=== PATIENT | male | born 1990 | race Caucasian/White ===

== ENCOUNTER 2017-03-11 21:31 | Inpatient (IN) | payer BC, OTHER ==
[~2017-03-11] VITALS: Ht 177.8 cm; Wt 87.5 kg
[2017-03-11 21:35] VITALS: Ht 177.8 cm; Wt 87.5 kg
[2017-03-11] MEDS ORDERED: SOD CHLORIDE 0.9% 1,000 ML IV STA (23:20)
[2017-03-11] MEDS ORDERED: ONDANSETRON 4 MG INJ IV STA (23:20)
[2017-03-11] MEDS ORDERED: morphine 4 MG/ML VIAL IV STA (23:20)
--- NOTE | 2017-03-11 23:35 | ERD ---
ER Documentation Chief Complaint Date/Time DATE: 03/11/17 TIME: 23:33 Chief Complaint RLQ abd pain x 1 day HPI 27-year-old male presents to emergency department for complaints of right groin , right scrotal pain and right lower quadrant pain that started tonight. Patient describes the pain as sharp pain, 9/10 scale, is worse upon moving and. Patient denies hematuria or dysuria. Patient denies any fever or chills. Patient denies any trauma and affected area. Patient denies any penile discharge. Patient denies taking any medications to help with symptoms. ROS All systems reviewed and are negative except as per history of present illness. Medications Home Meds Reported Medications [none] Unknown Strength No Conflict Check 03/11/17 Allergies Allergies: Coded Allergies: No Known Allergy (Unverified , 03/11/17) PMhx/Soc Medical and Surgical Hx: pt denies Medical Hx, pt denies Surgical Hx Hx Alcohol Use: No Hx Substance Use: No Hx Tobacco Use: No Smoking Status: Never smoker FmHx Family History: No coronary disease, No diabetes, No other Physical Exam Vitals Vital Signs Date Time Temp Pulse Resp B/P Pulse Ox O2 Delivery O2 Flow Rate FiO2 03/11/17 21:35 99.8 100 20 70/90 98 Physical Exam GENERAL: The patient is well developed and appropriate for usual state of health, in no apparent distress. CHEST: Clear to auscultation bilaterally. There are no rales, wheezes or rhonchi. HEART: Regular rate and rhythm. No murmurs, clicks, rubs or gallops. No S3 or S4. ABDOMEN: Soft, tenderness on palpation in the right lower quadrant. Good bowel sounds. No rebound or guarding. No gross peritonitis. No gross organomegaly or masses. No Weldon sign or McBurney point tenderness. BACK: No midline or flank tenderness. EXTREMITIES: Equal pulses bilaterally. There is no peripheral clubbing, cyanosis or edema. No focal swelling or erythema. Full range of motion. Grossly neurovascularly intact. NEURO: Alert and oriented. Cranial nerves 2-12 intact. Motor strength in all 4 extremities with 5/5 strength. Sensation grossly intact. Normal speech and gait. SKIN: There is no apparent rash or petechia. The skin is warm and dry. HEMATOLOGIC AND LYMPHATIC: There is no evidence of excessive bruising or lymphedema. No gross cervical, axillary, or inguinal lymphadenopathy. Result Diagram: 03/11/17234903/11/170 Results 24 hrs Laboratory Tests Test 03/11/17 23:50 03/12/17 02:12 White Blood Count 17.310^3/ul Red Blood Count 5.0410^6/ul Hemoglobin 14.7g/dl Hematocrit 42.0% Mean Corpuscular Volume 83.3fl Mean Corpuscular Hemoglobin 29.2pg Mean Corpuscular Hemoglobin Concent 35.0g/dl Red Cell Distribution Width 12.8% Platelet Count 35224^3/UL Mean Platelet Volume 9.8fl Neutrophils % 78.4% Lymphocytes % 9.7% Monocytes % 11.3% Eosinophils % 0.0% Basophils % 0.2% Nucleated Red Blood Cells % 0.0/100WBC Neutrophils # 13.610^3/ul Lymphocytes # 1.710^3/ul Monocytes # 2.010^3/ul Eosinophils # 0.010^3/ul Basophils # 0.010^3/ul Nucleated Red Blood Cells # 0.010^3/ul Sodium Level 137mmol/L Potassium Level 3.7mmol/L Chloride Level 105mmol/L Carbon Dioxide Level 20mmol/L Anion Gap 16 Blood Urea Nitrogen 16mg/dl Creatinine 0.78mg/dl Glucose Level 123mg/dl Calcium Level 9.6mg/dl Total Bilirubin 0.4mg/dl Direct Bilirubin 0.00mg/dl Indirect Bilirubin 0.4mg/dl Aspartate Amino Transf (AST/SGOT) 33IU/L Alanine Aminotransferase (ALT/SGPT) 55IU/L Alkaline Phosphatase 76IU/L Total Protein 8.3g/dl Albumin 4.5g/dl Globulin 3.80g/dl Albumin/Globulin Ratio 1.18 Lipase 69U/L Bedside Urine pH (LAB) 6.0 Bedside Urine Protein (LAB) 1+ Bedside Urine Glucose (UA) Negative Bedside Urine Ketones (LAB) Negative Bedside Urine Blood Trace-intact Bedside Urine Nitrite (LAB) Negative Bedside Urine Leukocyte Esterase (L Negative Current Medications Medications (Trade) Dose Ordered Sig/Kezia Route PRN Reason Start Time Stop Time Status Last Admin Dose Admin Sodium Chloride (NS) 1,000 ml @ 1,000 mls/hr Q1H STAT IV 03/11/17 23:20 03/12/17 00:19 DC 03/12/17 00:20 Morphine Sulfate (morphine) 4 mg ONCE STAT IV 03/11/17 23:20 03/11/17 23:21 DC 03/11/17 23:55 Ondansetron HCl (Zofran Inj) 4 mg ONCE STAT IV 03/11/17 23:20 03/11/17 23:21 DC 03/11/17 23:55 Morphine Sulfate (morphine) 6 mg ONCE ONCE IV 03/12/17 00:30 03/12/17 00:31 DC 03/12/17 00:14 Hydromorphone HCl (Dilaudid) 1 mg ONCE STAT IV 03/12/17 01:07 03/12/17 01:08 DC 03/12/17 01:12 Patient was given medication for pain here in emergency department, after treatment, patient verbalized feeling much better. Patient's pain is improved.Patient was given Zofran here in the emergency department. After treatment, patient was able to tolerate po fluids here in the emergency department without any vomiting. There is no signs and symptoms of dehydration. Normal saline IV bolus was given here in emergency department for rehydration, patient tolerated IV fluids.. PROCEDURE: CT Abdomen and pelvis without contrast. CLINICAL INDICATION: Abdominal pain. TECHNIQUE: CT scan of the abdomen and pelvis was performed on a multi- detector high-resolution CT scanner. Contiguous axial images were obtained from the lung bases to the ischial tuberosities without intravenous contrast. Coronal and sagittal reformatted images were also obtained. Images were reviewed on the PACS workstation. One or more of the following dose reduction techniques were used: - Automated exposure control. - Adjustment of the mA and/or kV according to patient size. - Use of iterative reconstruction technique. Exam CTD/vol = 12.51 mGy. Total exam DLP = 813.34 mGy-cm. COMPARISON: None. FINDINGS: Evaluation of the lung bases demonstrates no pleural or parenchymal disease. Abdomen: The liver is normal in size. There is no focal mass or dilatation of the biliary tree. The gallbladder is not distended. The spleen, pancreas and bilateral adrenal glands are within normal limits. Bilateral kidneys are normal in size with no contour deforming mass identified. There is no radiopaque renal or ureteral calculus identified. There is no hydronephrosis or hydroureter. There is no retroperitoneal adenopathy. The abdominal aorta is of normal caliber. There is no abnormal bowel wall thickening or distension. There is no bowel obstruction or free air. A normal appendix is identified. There is no diverticulosis or diverticulitis. There is no ascites. Pelvis: The bladder is unremarkable. There is trace pelvic free fluid. The prostate and seminal vesicles are within normal limits. There is no significant pelvic adenopathy. Evaluation of the osseous structures demonstrates no suspicious lytic or blastic lesion. IMPRESSION: Trace pelvic free fluid. Otherwise no acute abnormality identified within the abdomen and pelvis. .Maurilio Menard MD, Date Time Electronically viewed and signed by .Maurilio Menard MD, MD on 03/12/2017 01:55 .T/ PROCEDURE: Scrotal ultrasound CLINICAL INDICATION: Testicular pain. TECHNIQUE: A scrotal ultrasound was performed utilizing back scale and Doppler imaging. COMPARISON: None. FINDINGS: The right testicle measures 4.3 x 2.2 x 2.8 cm. There is normal size and echogenicity and morphology of the right testicle with normal blood flow. The right epididymis measures 1.2 x 1.1 cm. Normal vascular flow is seen within the right epididymis. The left testicle measures 4.1 x 1.9 x 2.9 cm. There is normal size and echogenicity and morphology of the left testicle with normal blood flow. The left epididymis measures 1.4 x 0.7 cm. Normal vascular flow is seen within the left epididymis. There is a trace left hydrocele. A left varicocele is also noted. IMPRESSION: 1. No evidence of testicular torsion or epididymo-orchitis. 2. Trace left hydrocele. 3. Left varicocele. RPTAT: HTAR .Abhinav Craft MD, Date Time Electronically viewed and signed by .Abhinav Craft MD, on 03/12/2017 01:04 .R/ CC: DOT DUNN NP Procedures/MDM Medical Decision Making: Patient has right lower quadrant abdominal pain with no specific source at this time, after multiple medications for pain, patient continues to have abdominal pain and/10 scale, is controlled, intractable pain. I spoke with my attending physician, Dr. Daniel, with further evaluate patient and possibly admit the patient for further management and treatment of pain. Departure Diagnosis: Primary Impression: Abdominal pain Abdominal location: right lower quadrant Qualified Code: R10.31 - Right lower quadrant abdominal pain Condition: Stable DOT DUNN NP March 11, 2017 23:35
[2017-03-11 23:56] LABS: ADD SCAN DIFF NO
[2017-03-11 23:57] LABS: ABNORMAL IP MESSAGE 1; BASOPHILS % 0.2 % (0.0-2.0); HEMOGLOBIN 14.7 g/dl (14.0-18.0); LYMPHOCYTES # 1.7 10^3/ul (0.8-2.9); LYMPHOCYTES % 9.7 % (15.0-51.0); MEAN CORPUSCULAR HEMOGLOBIN 29.2 pg (29.0-33.0); MEAN CORPUSCULAR VOLUME 83.3 fl (82.0-101.0); MEAN PLATELET VOLUME 9.8 fl (7.4-10.4); MONOCYTES % 11.3 % (0.0-11.0); NEUTROPHIL # 13.6 10^3/ul (1.6-7.5); NEUTROPHILS % 78.4 % (39.0-77.0); PLATELET COUNT 321 10^3/UL (140-415); RED BLOOD COUNT 5.04 10^6/ul (4.70-6.10); RED CELL DISTRIBUTION WIDTH 12.8 % (11.5-14.5); WHITE BLOOD COUNT 17.3 10^3/ul (4.8-10.8)
[2017-03-12] VITALS (9 sets, daily range): BP systolic 117–142; BP diastolic 64–84; PULSE 98–125; RESP 18–20; TEMP 98.1
[2017-03-12 00:16] LABS: ALBUMIN 4.5 g/dl (3.3-4.9); ALBUMIN/GLOBULIN RATIO 1.18; BILIRUBIN,INDIRECT 0.4 mg/dl (0-1.1); BILIRUBIN,TOTAL 0.4 mg/dl (0.2-1.3); CALCIUM 9.6 mg/dl (8.4-10.2); CREATININE 0.78 mg/dl (0.61-1.24); POTASSIUM 3.7 mmol/L (3.5-5.1); TOTAL PROTEIN 8.3 g/dl (6.1-8.1)
[2017-03-12] MEDS ORDERED: morphine 10 MG INJ IV ONE (00:30)
--- NOTE | 2017-03-12 01:04 | RADRPT ---
PROCEDURE: Scrotal ultrasound CLINICAL INDICATION: Testicular pain. TECHNIQUE: A scrotal ultrasound was performed utilizing back scale and Doppler imaging. COMPARISON: None. FINDINGS: The right testicle measures 4.3 x 2.2 x 2.8 cm. There is normal size and echogenicity and morphology of the right testicle with normal blood flow. The right epididymis measures 1.2 x 1.1 cm. Normal va scular flow is seen within the right epididymis. The left testicle measures 4.1 x 1.9 x 2.9 cm. There is normal size and echogenicity and morphology of the left testicle with normal blood flow. The left epididymis measures 1.4 x 0.7 cm. Normal vascu lar flow is seen within the left epididymis. There is a trace left hydrocele. A left varicocele is also noted. IMPRESSION: 1. No evidence of testicular torsion or epididymo-orchitis. 2. Trace left hydrocele. 3. Left varicocele. RPTAT: HTAR .Abhinav Craft MD, MD Date Time Electronically viewed and signed by .Abhinav Craft MD, on 03/12/2017 01:04 .R/
[2017-03-12] MEDS ORDERED: HYDROmorphONE 1 MG/ML SYG IV STA (01:07)
--- NOTE | 2017-03-12 01:55 | RADRPT ---
PROCEDURE: CT Abdomen and pelvis without contrast. CLINICAL INDICATION: Abdominal pain. TECHNIQUE: CT scan of the abdomen and pelvis was performed on a multi-detector high-resolution CT scanner. Contiguous axial images were obtained from the lung bases to the ischial tuberosities wit hout intravenous contrast. Coronal and sagittal reformatted images were also obtained. Images were reviewed on the PACS workstation. One or more of the following dose reduction techniques were used: - Automated exposure control. - Adjustment of the mA and/or kV according to patient size. - Use of iterative reconstruction technique. Exam CTD/vol = 12.51 mGy. Total exam DLP = 813.34 mGy-cm. COMPARISON: None. FINDINGS: Evaluation of the lung bases demonstrates no pleural or parenchymal disease. Abdomen: The liver is normal in size. There is no focal mass or dilatation of the biliary tree. T he gallbladder is not distended. The spleen, pancreas and bilateral adrenal glands are within jigar l limits. Bilateral kidneys are normal in size with no contour deforming mass identified. There is no radiopaque renal or ureteral calculus identified. There is no hydronephrosis or hydroureter. T here is no retroperitoneal adenopathy. The abdominal aorta is of normal caliber. There is no abnormal bowel wall thickening or distension. There is no bowel obstruction or free air . A normal appendix is identified. There is no diverticulosis or diverticulitis. There is no asci randy. Pelvis: The bladder is unremarkable. There is trace pelvic free fluid. The prostate and seminal v esicles are within normal limits. There is no significant pelvic adenopathy. Evaluation of the osseous structures demonstrates no suspicious lytic or blastic lesion. IMPRESSION: Trace pelvic free fluid. Otherwise no acute abnormality identified within the abdomen and pelvis. .Maurilio Meanrd MD, MD Date Time Electronically viewed and signed by .Maurilio Menard MD, MD on 03/12/2017 01:55 .T/
[2017-03-12 02:10] LABS: URINE BLOOD (Dip) POC Trace-intact (NEGATIVE)
[2017-03-12 03:05] LABS: ADD UMIC NO; URINE BILIRUBIN (Dip) NEGATIVE (NEGATIVE); URINE BLOOD (Dip) NEGATIVE (NEGATIVE); URINE COLOR LT. YELLOW (YELLOW); URINE GLUCOSE (Dip) NEGATIVE (NEGATIVE); URINE KETONES (Dip) NEGATIVE (NEGATIVE); URINE LEUKOCYTE ESTERASE (Dip) NEGATIVE (NEGATIVE); URINE NITRITE (Dip) NEGATIVE (NEGATIVE); URINE TOTAL PROTEIN (Dip) NEGATIVE (NEGATIVE); URINE UROBILINOGEN (Dip) 0.2 E.U./dL (0.1-1.0)
[2017-03-12] MEDS ORDERED: LORAZEPAM 2 MG INJ IV ONE (04:30)
[2017-03-12] MEDS ORDERED: SOD CHLORIDE 0.9% 1,000 ML IV SCH (05:00)
[2017-03-12] MEDS ORDERED: KETOROLAC 30 MG INJ IV ONE (05:04)
[2017-03-12] MEDS: SOD CHLORIDE 0.9% 1,000 ML IV SCH ×3 (05:26→21:36)
[2017-03-12] MEDS ORDERED: DOCUSATE SODIUM 100 MG CAP PO PRN (05:30)
[2017-03-12] MEDS ORDERED: BISACODYL (EC) 5 MG TAB PO PRN (05:30)
[2017-03-12] MEDS ORDERED: NACL 0.9% 3 ML SYG IV SCH (05:30)
[2017-03-12] MEDS ORDERED: ONDANSETRON 4 MG INJ IV PRN (05:30)
[2017-03-12 06:00] LABS: POTASSIUM 3.7 mmol/L (3.5-5.1)
[2017-03-12 06:03] LABS: CREATININE 0.81 mg/dl (0.61-1.24)
[2017-03-12 06:04] LABS: CALCIUM 8.9 mg/dl (8.4-10.2)
[2017-03-12 06:18] LABS: ADD SCAN DIFF NO
[2017-03-12 06:28] LABS: ABNORMAL IP MESSAGE 1; BASOPHILS % 0.1 % (0.0-2.0); HEMATOCRIT 42.2 % (42.0-52.0); HEMOGLOBIN 14.2 g/dl (14.0-18.0); LYMPHOCYTES % 5.9 % (15.0-51.0); MEAN CORPUSCULAR HEMOGLOBIN 29.1 pg (29.0-33.0); MEAN CORPUSCULAR HGB CONC 33.6 g/dl (32.0-37.0); MEAN CORPUSCULAR VOLUME 86.5 fl (82.0-101.0); MEAN PLATELET VOLUME 10.4 fl (7.4-10.4); MONOCYTE # 1.7 10^3/ul (0.3-0.9); MONOCYTES % 10.1 % (0.0-11.0); NEUTROPHIL # 14.1 10^3/ul (1.6-7.5); NEUTROPHILS % 83.4 % (39.0-77.0); PLATELET COUNT 288 10^3/UL (140-415); RED BLOOD COUNT 4.88 10^6/ul (4.70-6.10); WHITE BLOOD COUNT 16.9 10^3/ul (4.8-10.8)
[2017-03-12] MEDS: HYDROmorphONE 1 MG/ML SYG IV PRN ×2 (08:18→14:53)
[2017-03-12] MEDS: FAMOTIDINE 20 MG TAB PO SCH ×2 (08:27→21:33)
[2017-03-12] MEDS: ENOXAPARIN 40 MG/0.4 ML SYG SC SCH (08:27)
--- NOTE | 2017-03-12 09:44 | HP ---
Date/Time of Note Date/Time of Note DATE: 03/12/17 TIME: 09:32 Assessment/Plan VTE Prophylaxis VTE Prophylaxis Intervention: LMWH Lines/Catheters IV Catheter Type (from [facility]): Peripheral IV Assessment/Plan Chief Complaint/Hosp Course This is a 27-year-old male being admitted to the [facility] floor for: #1 intractable pain: Etiology of the pain is currently undetermined. CT of the abdomen pelvis was done that does not show any overt abnormality: Patient does have a varicocele on the testicular ultrasound however this does not explain his excruciating pain. He did he does specify that the pain is mainly at the right upper thigh area. I will order CK total as well as an MRI of the right lower extremity to rule out any possible underlying inflammation versus muscle tear versus other muscular skeletal issue. He denies any urinary symptoms and his UA was not positive for any signs of infection. And his prostate and bladder appear normal on the CAT scan which makes UTI versus prostatitis less likely. I will give him give him a Toradol for pain right now and if that does not help him we will add on some Dilaudid. #2 leukocytosis: Patient is afebrile he does have a white count of 17. This could be reactive versus infectious. We will continue to trend this. I will order a urine culture for completeness sake. We will continue to follow this and look for any new signs of any possible sources of infection. At this time I will not give him any antibiotics. #3 DVT GI prophylaxis: Lovenox, famotidine Problems: HPI/ROS Admit Date/Time Admit Date/Time March 12, 2017 at 03:43 Hx of Present Illness Chief complaint: Right thigh pain right lower abdominal quadrant pain This is a 27-year-old male who presents to the ED with pain at the right upper thigh and right abdominal quadrant. Patient states that 2 days ago he was playing soccer and at that time. That he may have pulled a muscle. Then yesterday at work patient states that he was in a seated position and when he stood up he started experiencing pain going from his right upper thigh up to his right upper abdomen. He denies any nausea vomiting or diarrhea. Denies any dysuria or burning when he urinates. He denies experiencing this pain before. Allergies: NKDA Medications: None ROS As per HPI Eyes : No pain discharge or redness or change in visual acuity ENT: No pain, sore throat, congestion, congestion, dysphagia or discharge Respiratory: No shortness of breath, cough, sputum, wheezing, or pleuritic pain Cardiovascular: No chest pain, palpitation, PND, or edema GI : as per HPI Genitourinary: As per HPI Musculoskeletal: No joint pain, back pain, neck pain, restricted range of motion in neck or joints Skin: No rash, bruising or hives Neuro: No headache, dizziness, syncope, seizure, focal weakness Endocrine: No polyuria, polydipsia, temperature intolerance Psych: No hallucination, depression, anxiety or suicidal ideation PMH/Family/Social Social History Smoking Status: Never smoker Exam/Review of Systems Vital Signs Vitals Vital Signs Date Time Temp Pulse Resp B/P Pulse Ox O2 Delivery O2 Flow Rate FiO2 03/12/17 07:00 98.7 113 18 142/73 97 03/12/17 04:14 Room Air Intake and Output 03/11/17 03/11/17 03/12/17 15:00 23:00 07:00 Intake Total 240 ml Output Total 600 ml Balance -360 ml Exam Exam General: Patient is lying in bed slightly somnolent from medications, and moderate distress from pain. HEENT: Atraumatic, normocephalic. The pupils are equal, round and reactive. Extraocular motor are intact Neck: Supple with full range of motion. No rigidity or meningismus Chest: Nontender Lungs: Clear to auscultation bilaterally no crackles rales or wheezing Heart: Normal S1-S2, Regular rhythm and rate. No murmur, S3, or S4 Abdomen: Soft , tenderness to palpation of the right lower abdominal quadrant. Normal bowel sounds. Extremities: Tenderness to palpation of the right upper thigh, no erythema or redness noted area of tenderness. Neurologic: Normal mental status, speech normal, cranial nerves II through XII are intact, motor and sensory are intact, no focal weakness Genitourinary: Patient deferred exam. Additional Comments ROCEDURE: CT Abdomen and pelvis without contrast. CLINICAL INDICATION: Abdominal pain. TECHNIQUE: CT scan of the abdomen and pelvis was performed on a multi- detector high-resolution CT scanner. Contiguous axial images were obtained from the lung bases to the ischial tuberosities without intravenous contrast. Coronal and sagittal reformatted images were also obtained. Images were reviewed on the PACS workstation. One or more of the following dose reduction techniques were used: - Automated exposure control. - Adjustment of the mA and/or kV according to patient size. - Use of iterative reconstruction technique. Exam CTD/vol = 12.51 mGy. Total exam DLP = 813.34 mGy-cm. COMPARISON: None. FINDINGS: Evaluation of the lung bases demonstrates no pleural or parenchymal disease. Abdomen: The liver is normal in size. There is no focal mass or dilatation of the biliary tree. The gallbladder is not distended. The spleen, pancreas and bilateral adrenal glands are within normal limits. Bilateral kidneys are normal in size with no contour deforming mass identified. There is no radiopaque renal or ureteral calculus identified. There is no hydronephrosis or hydroureter. There is no retroperitoneal adenopathy. The abdominal aorta is of normal caliber. There is no abnormal bowel wall thickening or distension. There is no bowel obstruction or free air. A normal appendix is identified. There is no diverticulosis or diverticulitis. There is no ascites. Pelvis: The bladder is unremarkable. There is trace pelvic free fluid. The prostate and seminal vesicles are within normal limits. There is no significant pelvic adenopathy. Evaluation of the osseous structures demonstrates no suspicious lytic or blastic lesion. IMPRESSION: Trace pelvic free fluid. Otherwise no acute abnormality identified within the abdomen and pelvis. PROCEDURE: Scrotal ultrasound CLINICAL INDICATION: Testicular pain. TECHNIQUE: A scrotal ultrasound was performed utilizing back scale and Doppler imaging. COMPARISON: None. FINDINGS: The right testicle measures 4.3 x 2.2 x 2.8 cm. There is normal size and echogenicity and morphology of the right testicle with normal blood flow. The right epididymis measures 1.2 x 1.1 cm. Normal vascular flow is seen within the right epididymis. The left testicle measures 4.1 x 1.9 x 2.9 cm. There is normal size and echogenicity and morphology of the left testicle with normal blood flow. The left epididymis measures 1.4 x 0.7 cm. Normal vascular flow is seen within the left epididymis. There is a trace left hydrocele. A left varicocele is also noted. IMPRESSION: 1. No evidence of testicular torsion or epididymo-orchitis. 2. Trace left hydrocele. 3. Left varicocele. Labs Result Diagram: 03/12/1752403/12/17524 Medications Medications Current Medications Hydromorphone HCl 0.5 mg 0.5 mg Q4H PRN IV PAIN Last administered on 03/12/17 08:18; Admin Dose 0.5 MG; Start 03/12/17 at 05:00 Sodium Chloride (NS) 1,000 ml @ 80 mls/hr [id number] IV Last administered on 03/12 05:26; Admin Dose 80 MLS/HR; Start 03/12/17 at 05:08 Ondansetron HCl (Zofran Inj) 4 mg Q6H PRN IV NAUSEA AND/OR VOMITING; Start at 05:30 Acetaminophen (Tylenol Tab) 650 mg Q6H PRN PO PAIN LEVEL 1-3 OR FEVER; Start at 05:30 Docusate Sodium (Colace) 100 mg Q12H PRN PO CONSTIPATION; Start 03/12/17 at 05: 30 Bisacodyl (Dulcolax) 5 mg DAILY PRN PO CONSTIPATION; Start 03/12/17 at 05:30 Famotidine (Pepcid) 20 mg Q12 PO Last administered on 03/12/17 08:27; Admin Dose 20 MG; Start 03/12/17 at 09:00 Enoxaparin Sodium (Lovenox) 40 mg DAILY SC Last administered on 03/12/17 08:27 ; Admin Dose 40 MG; Start 03/12/17 at 09:00 Ketorolac Tromethamine (Toradol) 30 mg Q6H PRN IV PAIN; Start 03/12/17 at 08:30 ; Stop 03/15/17 at 08:29 ELIZABETH KEARNEY March 12, 2017 09:44
[2017-03-12] MEDS: KETOROLAC 30 MG INJ IV PRN ×3 (11:49→23:47)
--- NOTE | 2017-03-12 12:18 | RADRPT ---
PROCEDURE: MRI OF THE RIGHT THIGH CLINICAL INDICATION: Muscle injury while playing soccer 2 days ago. TECHNIQUE: Multiple MR pulse sequences in multiple planes were obtained. Images were interpreted o n a high-resolution PACS system. COMPARISON: Correlation with CT from the same day FINDINGS: There is no acute fracture, osteonecrosis or stress response. Signal within the anterior and posterior muscles of the thigh is normal without evidence of strain, myositis or denervation effect. No abnormal intramuscular or subcutaneous fluid collections are charlene ntified. The neurovascular bundles are preserved. IMPRESSION: 1. No acute fracture, osteonecrosis or stress response. 2. No acute muscle or tendon abnormality. RPTAT: VV .Pankaj Fisher MD, Date Time Electronically viewed and signed by .Pankaj Fisher MD, MD on 03/12/2017 12:17 .d/
[2017-03-12] MEDS: ACETAMINOPHEN 325 MG TAB PO PRN ×2 (15:13→21:33)
[2017-03-13] MEDS: HYDROmorphONE 1 MG/ML SYG IV PRN ×2 (01:28→15:55)
[2017-03-13 05:37] LABS: ADD SCAN DIFF NO
[2017-03-13 05:45] LABS: ABNORMAL IP MESSAGE 1; BASOPHILS % 0.2 % (0.0-2.0); HEMATOCRIT 43.6 % (42.0-52.0); HEMOGLOBIN 14.1 g/dl (14.0-18.0); LYMPHOCYTES # 0.5 10^3/ul (0.8-2.9); LYMPHOCYTES % 2.2 % (15.0-51.0); MEAN CORPUSCULAR HEMOGLOBIN 28.7 pg (29.0-33.0); MEAN CORPUSCULAR HGB CONC 32.3 g/dl (32.0-37.0); MEAN CORPUSCULAR VOLUME 88.6 fl (82.0-101.0); MEAN PLATELET VOLUME 10.4 fl (7.4-10.4); MONOCYTE # 1.6 10^3/ul (0.3-0.9); MONOCYTES % 7.6 % (0.0-11.0); NEUTROPHIL # 18.5 10^3/ul (1.6-7.5); NEUTROPHILS % 89.3 % (39.0-77.0); PLATELET COUNT 189 10^3/UL (140-415); RED BLOOD COUNT 4.92 10^6/ul (4.70-6.10); RED CELL DISTRIBUTION WIDTH 13.2 % (11.5-14.5); WHITE BLOOD COUNT 20.8 10^3/ul (4.8-10.8)
[2017-03-13 05:53] LABS: ALBUMIN 3.2 g/dl (3.3-4.9); ALBUMIN/GLOBULIN RATIO 1.06; BILIRUBIN,INDIRECT 1.2 mg/dl (0-1.1); BILIRUBIN,TOTAL 1.2 mg/dl (0.2-1.3); CALCIUM 8.5 mg/dl (8.4-10.2); POTASSIUM 4.1 mmol/L (3.5-5.1); TOTAL PROTEIN 6.2 g/dl (6.1-8.1)
[2017-03-13] MEDS: ACETAMINOPHEN 325 MG TAB PO PRN ×2 (06:39→14:40)
[2017-03-13 08:25] VITALS: BP 123/66; RESP 18
[2017-03-13 10:15] VITALS: PULSE 118
[2017-03-13] MEDS: SOD CHLORIDE 0.9% 1,000 ML IV SCH (10:31)
[2017-03-13] MEDS: ENOXAPARIN 40 MG/0.4 ML SYG SC SCH (10:33)
[2017-03-13] MEDS: KETOROLAC 30 MG INJ IV PRN ×2 (10:34→19:31)
[2017-03-13] MEDS: FAMOTIDINE 20 MG TAB PO SCH ×2 (10:34→21:00)
--- NOTE | 2017-03-13 14:09 | PN ---
Date/Time of Note Date/Time of Note DATE: 03/13/17 TIME: 14:06 Assessment/Plan VTE Prophylaxis VTE Prophylaxis Intervention: LMWH Lines/Catheters IV Catheter Type (from [facility]): Peripheral IV Assessment/Plan Chief Complaint/Hosp Course Assessment and plan 1. Right lower quadrant abdominal pain, no evidence of appendicitis on CT of the abdomen and pelvis Continue pain medication, general surgery has been consulted, No evidence of testicular torsion on ultrasound Continue to monitor, started patient on Levaquin 2. Leukocytosis, Start Levaquin CBC in a.m. ` DVT GI prophylaxis: Lovenox, famotidine Problems: Subjective 24 Hr Interval Summary Free Text/Dictation Patient continues to complain of having right lower quadrant and inguinal pain Denies of any chest pain or shortness of breath Denies of any fever Exam/Review of Systems Vital Signs Vitals Vital Signs Date Time Temp Pulse Resp B/P Pulse Ox O2 Delivery O2 Flow Rate FiO2 03/13/17 10:15 98.9 118 03/13/17 08:25 18 123/66 95 03/12/17 18:11 Room Air Intake and Output 03/12/17 03/12/17 03/13/17 14:59 22:59 06:59 Intake Total 1700 ml 1280 ml Output Total 1500 ml Balance 1700 ml -220 ml Exam General: The patient is well-developed, Not in acute distress. HEENT: Atraumatic, normocephalic. The pupils are equal and round . Neck: Supple with full range of motion. Chest: Normal expansion of the thorax during inspiration Lungs: Clear to auscultation bilaterally Heart: Normal S1-S2, Regular rhythm and rate. Abdomen: Soft , right lower quadrant and inguinal tenderness, nondistended , bowel sounds are present. Extremities: Normal to inspection, no edema no cyanosis Neurologic: Normal mental status,The patient is awake, alert and oriented . Results Result Diagram: 03/13/17 0430 03/13/17 0430 Results 24 hrs Laboratory Tests Test 03/13/17 04:30 White Blood Count 20.8 #H Red Blood Count 4.92 Hemoglobin 14.1 Hematocrit 43.6 Mean Corpuscular Volume 88.6 Mean Corpuscular Hemoglobin 28.7 L Mean Corpuscular Hemoglobin Concent 32.3 Red Cell Distribution Width 13.2 Platelet Count 189 # Mean Platelet Volume 10.4 Neutrophils % 89.3 H Lymphocytes % 2.2 L Monocytes % 7.6 Eosinophils % 0.0 Basophils % 0.2 Nucleated Red Blood Cells % 0.0 Neutrophils # 18.5 H Lymphocytes # 0.5 L Monocytes # 1.6 H Eosinophils # 0.0 Basophils # 0.0 Nucleated Red Blood Cells # 0.0 Sodium Level 134 L Potassium Level 4.1 Chloride Level 104 Carbon Dioxide Level 24 Anion Gap 10 Blood Urea Nitrogen 15 Creatinine 1.00 Glucose Level 84 Calcium Level 8.5 Total Bilirubin 1.2 Direct Bilirubin 0.00 Indirect Bilirubin 1.2 H Aspartate Amino Transf (AST/SGOT) 30 Alanine Aminotransferase (ALT/SGPT) 50 Alkaline Phosphatase 63 Total Protein 6.2 # Albumin 3.2 #L Globulin 3.00 Albumin/Globulin Ratio 1.06 Medications Medications Current Medications Hydromorphone HCl 0.5 mg 0.5 mg Q4H PRN IV PAIN Last administered on 03/13/17 01:28; Admin Dose 0.5 MG; Start 03/12/17 at 05:00 Sodium Chloride (NS) 1,000 ml @ 80 mls/hr [id number] IV Last administered on 03/13 10:31; Admin Dose 80 MLS/HR; Start 03/12/17 at 05:08 Ondansetron HCl (Zofran Inj) 4 mg Q6H PRN IV NAUSEA AND/OR VOMITING; Start at 05:30 Acetaminophen (Tylenol Tab) 650 mg Q6H PRN PO PAIN LEVEL 1-3 OR FEVER Last administered on 03/13/17 06:39; Admin Dose 650 MG; Start 03/12/17 at 05:30 Docusate Sodium (Colace) 100 mg Q12H PRN PO CONSTIPATION; Start 03/12/17 at 05: 30 Bisacodyl (Dulcolax) 5 mg DAILY PRN PO CONSTIPATION; Start 03/12/17 at 05:30 Famotidine (Pepcid) 20 mg Q12 PO Last administered on 03/13/17 10:34; Admin Dose 20 MG; Start 03/12/17 at 09:00 Enoxaparin Sodium (Lovenox) 40 mg DAILY SC Last administered on 03/13/17 10:33 ; Admin Dose 40 MG; Start 03/12/17 at 09:00 Ketorolac Tromethamine (Toradol) 30 mg Q6H PRN IV PAIN Last administered on t 10:34; Admin Dose 30 MG; Start 03/12/17 at 08:30; Stop 03/15/17 at 08:29 KENY WITT MD March 13, 2017 14:09
[2017-03-13] MEDS ORDERED: LEVOFLOXACIN 500MG/D5W (PMX) 100 ML IVPB SCH (14:30)
[2017-03-13] MEDS: PIPER-TAZO 3.375 GM IV (PMX) 100 ML IVPB SCH ×2 (16:31→23:10)
[2017-03-13 19:00] VITALS: BP 130/70; RESP 18
[2017-03-13] MEDS ORDERED: VANCOMYCIN IV PER PHARMACY XX SCH (23:00)
[2017-03-13] MEDS ORDERED: VANCOMYCIN 1.5 GM in SOD CHLORIDE 0.9% 250 ML IVPB SCH (23:30)
--- NOTE | 2017-03-13 23:55 | HP ---
DATE OF ADMISSION: 03/12/2017 REASON FOR CONSULTATION: Right lower quadrant abdominal pain. HISTORY OF PRESENT ILLNESS: The patient is a healthy and fit 27-year-old gentleman who presented to the emergency room 2 days ago with a history that he was at work and after standing up, he felt a s evere pain in the right upper inner thigh and groin, which was practically incapacitating. He was s een in the emergency room where he was treated and released. At that time, he had an elevated white count. The patient's symptoms continued, and the patient was readmitted yesterday. His white bloo d cell count on admission yesterday was 16,900; today it is 20,800 with a left shift. Furthermore, the patient has gram-positive cocci in his blood. His imaging is as follows: He has had abdominope lvic CT which is unremarkable. Lower extremity MRI also unremarkable, and a testicular ultrasound w [facility] [place] shows no evidence of testicular torsion or epididymitis. The patient states that since his arr ival, he feels better. His main problem is when he moves, he needs to stand up and standing up from a sitting position is what causes him the greatest amount of pain. He has full p.o. tolerance and normal bowel function. He has had no fevers or chills or really abdominal pain. Most of his pain i s upper inner thigh and groin. PAST MEDICAL HISTORY: No previous hospitalizations or illnesses. REVIEW OF SYSTEMS: HEAD, EARS, EYES, NOSE AND THROAT: Unremarkable. PULMONARY: No history of pneumonia, asthma or shortness of breath. CARDIAC: No history of chest pain or arrhythmia. ABDOMEN: No history. GENITOURINARY: Asymptomatic. OUTPATIENT MEDICATIONS: None. ALLERGIES: NONE. PHYSICAL EXAMINATION: GENERAL: The patient is an alert, oriented, 27-year-old male in no acute distress. HEAD, EARS, EYES, NOSE, THROAT: Within normal limits. LUNGS: Clear. HEART: Regular rhythm. ABDOMEN: Soft and nontender. GENITALIA: Normal male. No evidence of inguinal hernia. EXTREMITIES: Unremarkable. No evidence of bruising or ecchymosis. LABORATORY DATA: The patient's hematocrit is 43.6 with a white count of 20,800 and a left shift wit h 89 polys. There is no bandemia. BUN, glucose, electrolytes are unremarkable. IMPRESSION: The patient has no abdominal symptomatology. His abdominal imaging is unremarkable. T he finding of gram-positive cocci in his blood cultures is unexplained. It perhaps can be a contami nant. PLAN: Infectious Diseases consultation has been sought. My impression is that the patient has no i ntraabdominal source of his leukocytosis or thigh pain. I will follow with you. Further recommenda tions will be forthcoming based on the patient's further workup and clinical course. Dictated By: DARREN BANDA/VARGAS Conf#: [id number] DID#: [id number]
[2017-03-14 00:30] VITALS: BP 133/62; RESP 18
--- NOTE | 2017-03-14 02:13 | CONS ---
DATE OF ADMISSION: 03/12/2017 DATE OF CONSULTATION: REQUESTING PHYSICIAN: Dr. Esau Colunga. HISTORY OF PRESENT ILLNESS: The patient is a 27-year-old male who was admitted with acute onset of right groin and scrotal pain described as being sharp, 9/10 in intensity, and also right lo wer quadrant abdominal pain. No nausea, vomiting, diarrhea, chills. The patient's father states hi s temperature was 102. On arrival, it was 100.5. The abdominal exam revealed that it was basically negative except for mild right lower quadrant tenderness. White count was 17,300; hemoglobin 14.7, sodium 137, chloride 105, potassium 3.7, CO2 of 22. Urinalysis was essentially negative. The izabel ent had a CT scan of the abdomen and pelvis. There was trace pelvic free fluid. Everything else wa s normal or negative. Scrotal ultrasound revealed a left hydrocele and a left varicocele. The izabel ent had 2 blood cultures returned today with gram-positive cocci in 2 blood cultures. PHYSICAL EXAMINATION: GENERAL: Reveals a well-developed, well-nourished male lying in bed. He does not appear t o be in acute distress. He was awakened by the discussion I was having with his family in the room. He apparently had been peaceful for some hours, considering how much pain he had previously been h aving. Prior to my coming in to the room and prior to IV Zosyn, the patient was given a dose of Tor adol, which caused him to feel tight in his chest and have trouble breathing. This, of course, was discontinued right afterwards. HEENT: The pupils are equal, round, and reactive to light. Extraocular movements are full. The pa tient has no acute distress. NECK: Supple. No jugular venous distention. CHEST: Clear to auscultation. ABDOMEN: Soft. There is questionable some right lower abdominal tenderness. NEUROLOGIC: Grossly within normal limits. GENITOURINARY: There is no swelling, redness, or distortion of the scrotum. INITIAL IMPRESSION: 1. Septic syndrome. 2. Gram-positive bacteremia in 2 blood cultures. 3. Acute right lower quadrant and scrotal pain. 4. Adverse drug reaction. RECOMMENDATIONS: Continue vancomycin and Zosyn pending identification of the causative organisms. Discontinue Toradol. Obtain an MRSA screen from the nares. Obtain CBC and erythrocyte sedimentatio n rate in the morning. Dictated By: Clara ORTIZ MD for MENDY ARNDT MD EC/NTS Conf#: [id number] DID#: [id number] CC: ESAU KEARNEY MD;*EndCC*
[2017-03-14] MEDS: HYDROmorphONE 1 MG/ML SYG IV PRN ×2 (02:20→10:01)
[2017-03-14] MEDS: SOD CHLORIDE 0.9% 1,000 ML IV SCH (02:23)
[2017-03-14] MEDS: ACETAMINOPHEN 325 MG TAB PO PRN ×3 (02:29→15:58)
[2017-03-14 05:16] LABS: ADD SCAN DIFF NO
[2017-03-14 05:22] LABS: ABNORMAL IP MESSAGE 1; HEMATOCRIT 38.6 % (42.0-52.0); HEMOGLOBIN 13.2 g/dl (14.0-18.0); MEAN CORPUSCULAR HEMOGLOBIN 28.8 pg (29.0-33.0); MEAN CORPUSCULAR HGB CONC 34.2 g/dl (32.0-37.0); MEAN CORPUSCULAR VOLUME 84.3 fl (82.0-101.0); MEAN PLATELET VOLUME 10.6 fl (7.4-10.4); PLATELET COUNT 179 10^3/UL (140-415); RED BLOOD COUNT 4.58 10^6/ul (4.70-6.10); WHITE BLOOD COUNT 12.1 10^3/ul (4.8-10.8)
[2017-03-14 05:53] LABS: POTASSIUM 3.2 mmol/L (3.5-5.1)
[2017-03-14] MEDS: PIPER-TAZO 3.375 GM IV (PMX) 100 ML IVPB SCH ×2 (05:53→15:04)
[2017-03-14 05:55] LABS: ALBUMIN/GLOBULIN RATIO 0.85; BILIRUBIN,DIRECT 0.5 mg/dl (0.00-0.20); BILIRUBIN,INDIRECT 0.8 mg/dl (0-1.1); BILIRUBIN,TOTAL 1.3 mg/dl (0.2-1.3); CREATININE 0.97 mg/dl (0.61-1.24); TOTAL PROTEIN 6.5 g/dl (6.1-8.1)
[2017-03-14 05:56] LABS: CALCIUM 8.1 mg/dl (8.4-10.2); MAGNESIUM 1.9 mg/dl (1.7-2.5)
[2017-03-14 08:17] VITALS: BP 129/66; RESP 18
[2017-03-14 08:49] LABS: ADD SCAN DIFF NO
[2017-03-14 08:57] LABS: BASOPHILS % 0.3 % (0.0-2.0); HEMATOCRIT 38.8 % (42.0-52.0); HEMOGLOBIN 13.3 g/dl (14.0-18.0); LYMPHOCYTES # 0.6 10^3/ul (0.8-2.9); LYMPHOCYTES % 5.2 % (15.0-51.0); MEAN CORPUSCULAR HEMOGLOBIN 29.1 pg (29.0-33.0); MEAN CORPUSCULAR HGB CONC 34.3 g/dl (32.0-37.0); MEAN CORPUSCULAR VOLUME 84.9 fl (82.0-101.0); MONOCYTE # 0.3 10^3/ul (0.3-0.9); MONOCYTES % 2.8 % (0.0-11.0); NEUTROPHIL # 10.7 10^3/ul (1.6-7.5); PLATELET COUNT 195 10^3/UL (140-415); RED BLOOD COUNT 4.57 10^6/ul (4.70-6.10); WHITE BLOOD COUNT 11.8 10^3/ul (4.8-10.8)
[2017-03-14 09:01] LABS: NEUTROPHILS % 90.6 % (39.0-77.0)
--- NOTE | 2017-03-14 09:06 | PN ---
DATE: 03/14/2017 SURGERY PROGRESS NOTE SUBJECTIVE: The patient states that he is symptomatically improved, although now he states that his pain has crossed the midline and extending to the other groin. He is afebrile this morning; howeve r, his T-max yesterday was 102.8. A repeat CBC from today is pending. PHYSICAL EXAMINATION: GENITOURINARY: Both groins, scrotum, and penis are normal. The perineum is normal and rectal exami nation is normal. IMPRESSION: Unexplained fever and leukocytosis and gram-positive cocci. Infectious disease consult ation has been sought, and recommendations consist of continuing vancomycin and Zosyn, pending ident ification of the causative organism. At the present time, there are no surgical recommendations, an d I do not see any evidence of cellulitis, erythema, induration. His abdominal examination is entir rica benign. PLAN: Further recommendations will be based on the patient's further workup and clinical course. Dictated By: DARREN BANDA/VARGAS Conf#: [id number] DID#: [id number]
[2017-03-14] MEDS: FAMOTIDINE 20 MG TAB PO SCH ×3 (09:07→23:20)
[2017-03-14 09:40] LABS: LYMPHOCYTES # 0.6 10^3/ul (0.8-2.9); MONOCYTE # 0.2 10^3/ul (0.3-0.9); NEUTROPHIL # 6.8 10^3/ul (1.6-7.5)
[2017-03-14] MEDS: ENOXAPARIN 40 MG/0.4 ML SYG SC SCH (10:11)
[2017-03-14] MEDS: VANCOMYCIN 1.25 GM in SOD CHLORIDE 0.9% 250 ML IVPB SCH ×2 (10:17→17:41)
--- NOTE | 2017-03-14 11:01 | PN ---
Date/Time of Note Date/Time of Note DATE: 03/14/17 TIME: 10:55 Assessment/Plan VTE Prophylaxis VTE Prophylaxis Intervention: SCD's Lines/Catheters IV Catheter Type (from Nrs): Peripheral IV Assessment/Plan Chief Complaint/Hosp Course Assessment and plan 1. Right lower quadrant abdominal pain, no evidence of appendicitis on CT of the abdomen and pelvis Continue pain medication, general surgery has been consulted, No surgical intervention indicated at this time No evidence of testicular torsion on ultrasound continue Zosyn and vancomycin 2. Leukocytosis, Secondary to septic bacteremia with positive blood culture of gram-positive cocci in cluster 2 Follow up sensitivity Continue Zosyn and vancomycin Infectious disease doctor has been consulted CBC in a.m. ` 3. Transaminitis, CT of the abdomen and pelvis demonstrated "The liver is normal in size. There is no focal mass or dilatation of the biliary tree. The gallbladder is not distended." Place the patient on full liquid diet Follow-up liver function tests in a.m. Follow-up abdominal ultrasound DVT GI prophylaxis: Lovenox, famotidine Problems: Subjective 24 Hr Interval Summary Free Text/Dictation Patient continues to complain of having right lower quadrant abdominal discomfort although he has been improving since yesterday No nausea vomiting diarrhea Positive bowel movement T-max of 101.1 Exam/Review of Systems Vital Signs Vitals Vital Signs Date Time Temp Pulse Resp B/P Pulse Ox O2 Delivery O2 Flow Rate FiO2 03/14/17 08:17 99.5 95 18 129/66 99 03/14/17 00:30 Room Air Intake and Output 03/13/17 03/13/17 03/14/17 15:00 23:00 07:00 Intake Total 600 ml 1220 ml Output Total 1200 ml Balance 600 ml 20 ml Exam General: The patient is well-developed, Not in acute distress. HEENT: Atraumatic, normocephalic. The pupils are equal and round . Neck: Supple with full range of motion. Chest: Normal expansion of the thorax during inspiration Lungs: Clear to auscultation bilaterally Heart: Normal S1-S2, Regular rhythm and rate. Abdomen: Soft , right lower abdomen/groin tenderness , nondistended , bowel sounds are present. Extremities: Normal to inspection, no edema no cyanosis Neurologic: Normal mental status,The patient is awake, alert and oriented . Results Result Diagram: 03/14/17 0430 03/14/17 0450 Results 24 hrs Laboratory Tests Test 03/13/17 18:52 03/14/17 04:30 03/14/17 04:50 Lactic Acid Level 1.0 White Blood Count 11.8 H Red Blood Count 4.57 L Hemoglobin 13.3 L Hematocrit 38.8 L Mean Corpuscular Volume 84.9 Mean Corpuscular Hemoglobin 29.1 Mean Corpuscular Hemoglobin Concent 34.3 Red Cell Distribution Width 13.0 Platelet Count 195 Mean Platelet Volume 11.0 H Neutrophils % 90.6 H Band Neutrophils % 37.0 H Lymphocytes % 5.2 L Monocytes % 2.8 Eosinophils % 0.0 Basophils % 0.3 Nucleated Red Blood Cells % 0.0 Neutrophils # 10.7 H Lymphocytes # 0.6 L Monocytes # 0.3 Eosinophils # 0.0 Basophils # 0.0 Nucleated Red Blood Cells # 0.0 Erythrocyte Sedimentation Rate 23.0 H Sodium Level 134 L Potassium Level 3.2 L Chloride Level 102 Carbon Dioxide Level 22 Anion Gap 13 Blood Urea Nitrogen 14 Creatinine 0.97 Glucose Level 111 Calcium Level 8.1 L Magnesium Level 1.9 Total Bilirubin 1.3 Direct Bilirubin 0.50 #H Indirect Bilirubin 0.8 Aspartate Amino Transf (AST/SGOT) 88 #H Alanine Aminotransferase (ALT/SGPT) 92 H Alkaline Phosphatase 94 Total Protein 6.5 Albumin 3.0 L Globulin 3.50 H Albumin/Globulin Ratio 0.85 Medications Medications Current Medications Hydromorphone HCl (Dilaudid) 0.5 mg Q4H PRN IV PAIN Last administered on 10:01; Admin Dose 0.5 MG; Start 03/12/17 at 05:00 Ondansetron HCl (Zofran Inj) 4 mg Q6H PRN IV NAUSEA AND/OR VOMITING; Start at 05:30 Acetaminophen (Tylenol Tab) 650 mg Q6H PRN PO PAIN LEVEL 1-3 OR FEVER Last administered on 03/14/17 10:01; Admin Dose 650 MG; Start 03/12/17 at 05:30 Docusate Sodium (Colace) 100 mg Q12H PRN PO CONSTIPATION; Start 03/12/17 at 05: 30 Bisacodyl (Dulcolax) 5 mg DAILY PRN PO CONSTIPATION; Start 03/12/17 at 05:30 Famotidine (Pepcid) 20 mg Q12 PO Last administered on 03/14/17 09:07; Admin Dose 20 MG; Start 03/12/17 at 09:00 Enoxaparin Sodium 40 mg 40 mg DAILY SC Last administered on 03/14/17 10:11; Admin Dose 40 MG; Start 03/12/17 at 09:00 Piperacillin Sod/ Tazobactam Sod 100 ml @ 200 mls/hr Q8 IVPB Last administered on 03/14/17 05:53; Admin Dose 200 MLS/HR; Start 03/13/17 at 16:30 Vancomycin HCl/ Sodium Chloride (Vancocin/NS) 250 ml @ 83.333 mls/ hr Q8H IVPB Last administered on 03/14/17 10:17; Admin Dose 83.333 MLS/HR; Start at 10:00 Miscellaneous Information VANCO TROUGH @ 0,100 ON... ONCE ONCE XX ; Start at 01:00; Stop 03/15/17 at 01:01 Potassium Chloride/Sodium Chloride (NS-KCl 20 Meq) 1,000 ml @ 75 mls/hr [id number] IV ; Start 03/14/17 at 10:30 KENY WITT MD March 14, 2017 11:01
[2017-03-14] MEDS: NS + KCL 20 MEQ 1,000 ML IV SCH ×2 (15:03→23:50)
--- NOTE | 2017-03-14 16:13 | RADRPT ---
PROCEDURE: US Abdomen. CLINICAL INDICATION: abdominal pain TECHNIQUE: Multiple real-time images were acquired of the patient's right upper quadrant abdomen a nd retroperitoneum utilizing a high resolution transducer. COMPARISON: 03/12/17 FINDINGS: The liver demonstrates normal echogenicity. The liver is normal in size and no focal solid lesions are seen. The liver measures 17.5 cm in length. The portal vein is patent with normal direction of f low. No intrahepatic biliary dilatation is seen. No gallstones are identified within the gallbladder. There is no pericholecystic fluid or gallbladd er wall thickening. The common bile duct measures 4 mm in maximal dimension. The visualized portions of the pancreas are unremarkable. The tail of the pancreas is not seen. No free fluid is identified. The right kidney is normal in size, and demonstrate normal echogenicity and cortical thickness. The right kidney measures 12.2 cm in long dimension. There is no evidence of hydronephrosis. There are no kidney stones. RPTAT: AA IMPRESSION: Unremarkable right upper quadrant abdominal ultrasound. .Ryan Aguayo MD, Date Time Electronically viewed and signed by .Ryan Aguayo MD, on 03/14/2017 16:13 .S/
--- NOTE | 2017-03-14 19:19 | RADRPT ---
Echocardiogram Report Patient Name: VIANEY COYNE Gender: Male Date: 1990 Study Date: 14-Mar-2017 Technology Support Analyst: [facility] Location: [id number] Ref. Physician: AVA MACHADO Quality: Adequate Procedures: Transthoracic echocardiogram with complete 2D, M-Mode, and doppler examination. Indications: R/O VEGETATIONS. 2D/M Mode Doppler Measurement Value Normal Ranges Measurement Value Normal Ranges LVIDd 2D 4.8 3.5 - 5.6 cm AV Peak [place] 1.6 m/sec LVIDs 2D 3.4 2.1 - 4.1 cm AV Peak PG 10.1 mmHg LVPWd 2D 1.1 0.6 - 1.1 cm LVOT Peak [place] 1.1 m/sec IVSd 2D 1.2 0.6 - 1.1 cm LVOT Peak PG 5.0 mmHg AoR Diam 2D 2.6 2.0 - 3.7 cm EDV 2D 108.1 cm3 ESV 2D 40.7 cm3 LA Dimen 2D 3.3 2.3 - 4.0 cm Findings Left Ventricle: Normal left ventricular systolic function. Normal left ventricular cavity size. Left ventricular wall thickness upper limits of normal. Mild concentric left ventricular hypertrophy. Mild global left ventricular systolic dysfunction. Ejection fraction is visually estimated at 4550 %. Right Ventricle: Normal right ventricular size. Normal right ventricular systolic function. Left Atrium: The left atrium is normal in size. Right Atrium: The right atrium is normal in size. Mitral Valve: Normal appearance of the mitral valve. Normal appearance and function of the mitral valve with trace physiologic regurgitation. Aortic Valve: Normal appearance of the aortic valve. No significant aortic stenosis or insufficiency. Tricuspid Valve: Normal appearance of the tricuspid valve. Unable to obtain RVSP due to minimal presence of tricuspid regurgitation. Pulmonic Valve: Pulmonic valve not well visualized. Pericardium: Normal pericardium with no significant pericardial effusion. Aorta: Normal aortic root. IVC: Normal size and normal respiratory collapse consistent with normal right atrial pressure. Conclusions 1.Normal left ventricular systolic function. Normal left ventricular cavity size. Left ventricular wall thickness upper limits of normal. Mild concentric left ventricular hypertrophy. Mild global left ventricular systolic dysfunction. Ejection fraction is visually estimated at 45-50 %. 2.Normal appearance of the mitral valve. Normal appearance and function of the mitral valve with trace physiologic regurgitation. 3.Normal appearance of the tricuspid valve. Unable to obtain RVSP due to minimal presence of tricuspid regurgitation. Electronically Signed By: Hood Mcduffie 14-Mar-2017 19:18:34 -0700 Patient Name: VIANEY COYNE Study Date: 14-Mar-2017 [id number]
[2017-03-14 20:26] VITALS: BP 155/86; RESP 20
[2017-03-15] MEDS: HYDROmorphONE 1 MG/ML SYG IV PRN ×6 (00:31→20:57)
[2017-03-15] MEDS: VANCOMYCIN 1.25 GM in SOD CHLORIDE 0.9% 250 ML IVPB SCH (02:31)
--- NOTE | 2017-03-15 03:51 | PN ---
DATE: 03/14/2017 SUBJECTIVE: No events overnight. The patient continues to spike fevers with a T-max today 103. MICROBIOLOGY: Blood culture growing Staphylococcus aureus. Preliminary urine culture negative. DIAGNOSTICS: Ultrasound of the abdomen was unremarkable. CT of the abdomen and pelvis revealed tra ce pelvic free fluid. MRI of right lower extremity revealed no acute abnormality. Testicular ultra sound revealed left varicocele but no evidence of testicular torsion or epididymal orchitis. ANTIMICROBIALS: The patient is on: 1. Vancomycin. 1. Zosyn. PHYSICAL EXAMINATION: GENERAL: This is a well-nourished, well-developed 27-year-old man who is alert, in no distress. HEENT: Head atraumatic, normocephalic. Sclerae anicteric. Buccal mucosa pink. NECK: Supple. CHEST: Rise symmetrical. Breath sounds clear. HEART: S1, S2. ABDOMEN: Soft, bowel tones present. EXTREMITIES: Without cyanosis. ASSESSMENT: 1. Sepsis with fevers and leukocytosis. 2. Staphylococcus aureus bacteremia, possibly methicillin-resistant Staphylococcus aureus, source u nknown. 3. Right lower quadrant abdominal pain. So far all imaging studies have been negative so surgery o n case. 4. Transaminitis with unremarkable ultrasound of the abdomen. PLAN: We are going to continue the patient on current antibiotics, order 2D echo to rule out vegeta tions. We will consider doing a WBC labeled nuclear scan and repeat blood cultures. Dictated By: AVA MACHADO RETAIL WAREHOUSE ASSOCIATE for MENDY ARNDT MD NI/NTS Conf#: [id number] DID#: [id number] CC: ELIZABETH KEARNEY MD;*EndCC*
[2017-03-15 05:36] LABS: ADD SCAN DIFF NO
[2017-03-15 05:39] LABS: BASOPHILS % 0.2 % (0.0-2.0); HEMATOCRIT 36.7 % (42.0-52.0); HEMOGLOBIN 12.5 g/dl (14.0-18.0); LYMPHOCYTES # 1.4 10^3/ul (0.8-2.9); LYMPHOCYTES % 14.2 % (15.0-51.0); MEAN CORPUSCULAR HEMOGLOBIN 28.3 pg (29.0-33.0); MEAN CORPUSCULAR HGB CONC 34.1 g/dl (32.0-37.0); MEAN CORPUSCULAR VOLUME 83.2 fl (82.0-101.0); MEAN PLATELET VOLUME 10.2 fl (7.4-10.4); MONOCYTE # 0.9 10^3/ul (0.3-0.9); MONOCYTES % 9.3 % (0.0-11.0); NEUTROPHIL # 7.3 10^3/ul (1.6-7.5); NEUTROPHILS % 75.5 % (39.0-77.0); PLATELET COUNT 200 10^3/UL (140-415); RED BLOOD COUNT 4.41 10^6/ul (4.70-6.10); RED CELL DISTRIBUTION WIDTH 12.9 % (11.5-14.5); WHITE BLOOD COUNT 9.6 10^3/ul (4.8-10.8)
[2017-03-15 06:08] LABS: ALBUMIN 3.1 g/dl (3.3-4.9); BILIRUBIN,INDIRECT 0.5 mg/dl (0-1.1); BILIRUBIN,TOTAL 0.5 mg/dl (0.2-1.3); CREATININE 0.95 mg/dl (0.61-1.24); MAGNESIUM 1.8 mg/dl (1.7-2.5); POTASSIUM 3.5 mmol/L (3.5-5.1); TOTAL PROTEIN 6.7 g/dl (6.1-8.1)
[2017-03-15 07:00] VITALS: BP 141/79; RESP 18
[2017-03-15] MEDS: FAMOTIDINE 20 MG TAB PO SCH ×2 (07:56→20:57)
[2017-03-15] MEDS: ENOXAPARIN 40 MG/0.4 ML SYG SC SCH (08:06)
[2017-03-15] MEDS: VANCOMYCIN 1.5 GM in SOD CHLORIDE 0.9% 250 ML IVPB SCH ×2 (10:31→18:28)
--- NOTE | 2017-03-15 10:31 | PN ---
Date/Time of Note Date/Time of Note DATE: 03/15/17 TIME: 10:30 Assessment/Plan VTE Prophylaxis VTE Prophylaxis Intervention: SCD's Lines/Catheters Urinary Cath still in place: No Assessment/Plan Problems: (1) Staphylococcus aureus bacteremia with sepsis Status: Acute Comment: Patient presented with symptoms of sepsis with fever tachycardia and alterations. I suspect the actual source of this is from a prostatitis that corresponds with the free fluid seen in the abdominal pelvic CT. A more sensitive test will be MRI scan which will undertake. The meantime he is clinically improving with appropriate antibiotic therapy. Please note this is a methicillin sensitive staph aureus. Subjective 24 Hr Interval Summary Constitutional: no complaints Respiratory: no complaints Cardiovascular: no complaints Gastrointestinal: no complaints Genitourinary: no complaints Musculoskeletal: other (improving symptoms) Exam/Review of Systems Vital Signs Vitals Vital Signs Date Time Temp Pulse Resp B/P Pulse Ox O2 Delivery O2 Flow Rate FiO2 03/15/17 07:00 99.0 97 18 141/79 99 03/14/17 00:30 Room Air Intake and Output 03/14/17 03/14/17 03/15/17 15:00 23:00 07:00 Intake Total 1010 ml 1000 ml 1150 ml Output Total 450 ml Balance 1010 ml 550 ml 1150 ml Exam Constitutional: alert, oriented Respiratory: clear to auscultation, normal air movement Cardiovascular: nl pulses, regular rate and rhythm Gastrointestinal: nl liver, spleen, non-tender, soft Results Result Diagram: 03/15/17 0450 03/15/17 0450 Results 24 hrs Laboratory Tests Test 03/15/17 00:55 03/15/17 04:50 Vancomycin Level Trough 8.9 L White Blood Count 9.6 Red Blood Count 4.41 L Hemoglobin 12.5 L Hematocrit 36.7 L Mean Corpuscular Volume 83.2 Mean Corpuscular Hemoglobin 28.3 L Mean Corpuscular Hemoglobin Concent 34.1 Red Cell Distribution Width 12.9 Platelet Count 200 Mean Platelet Volume 10.2 Neutrophils % 75.5 Lymphocytes % 14.2 L Monocytes % 9.3 Eosinophils % 0.0 Basophils % 0.2 Nucleated Red Blood Cells % 0.0 Neutrophils # 7.3 Lymphocytes # 1.4 Monocytes # 0.9 Eosinophils # 0.0 Basophils # 0.0 Nucleated Red Blood Cells # 0.0 Sodium Level 131 L Potassium Level 3.5 Chloride Level 102 Carbon Dioxide Level 21 Anion Gap 12 Blood Urea Nitrogen 11 Creatinine 0.95 Glucose Level 104 Calcium Level 8.0 L Magnesium Level 1.8 Total Bilirubin 0.5 Direct Bilirubin 0.00 # Indirect Bilirubin 0.5 Aspartate Amino Transf (AST/SGOT) 90 H Alanine Aminotransferase (ALT/SGPT) 85 H Alkaline Phosphatase 96 Total Protein 6.7 Albumin 3.1 L Medications Medications Current Medications Hydromorphone HCl (Dilaudid) 0.5 mg Q4H PRN IV PAIN Last administered on 07:56; Admin Dose 0.5 MG; Start 03/12/17 at 05:00 Ondansetron HCl (Zofran Inj) 4 mg Q6H PRN IV NAUSEA AND/OR VOMITING; Start at 05:30 Acetaminophen (Tylenol Tab) 650 mg Q6H PRN PO PAIN LEVEL 1-3 OR FEVER Last administered on 03/14/17 15:58; Admin Dose 650 MG; Start 03/12/17 at 05:30 Docusate Sodium (Colace) 100 mg Q12H PRN PO CONSTIPATION Last administered on 07:56; Admin Dose 100 MG; Start 03/12/17 at 05:30 Bisacodyl (Dulcolax) 5 mg DAILY PRN PO CONSTIPATION; Start 03/12/17 at 05:30 Famotidine (Pepcid) 20 mg Q12 PO Last administered on 03/15/17 07:56; Admin Dose 20 MG; Start 03/12/17 at 09:00 Enoxaparin Sodium 40 mg 40 mg DAILY SC Last administered on 03/15/17 08:06; Admin Dose 40 MG; Start 03/12/17 at 09:00 Potassium Chloride/Sodium Chloride 1,000 ml @ 75 mls/hr [id number] IV Last administered on 03/14/17 15:03; Admin Dose 75 MLS/HR; Start 03/14/17 at 10:30 Vancomycin HCl/ Sodium Chloride (Vancocin/NS) 250 ml @ 83.333 mls/ hr Q8H IVPB ; Start 03/15/17 at 10:00 Miscellaneous Information (*Rx Drug Level Order Reminder*) VANCO TROUGH AT 0, 900 ON... ONCE ONCE XX ; Start 03/16/17 at 09:00; Stop 03/16/17 at 09:01 EDMOND MACHADO MD March 15, 2017 10:31
--- NOTE | 2017-03-15 14:31 | CONS ---
Date/Time of Note Date/Time of Note DATE: 03/15/17 TIME: 14:27 Assessment/Plan Assessment/Plan Chief Complaint/Hosp Course ID PROGRESS NOTE ABX DAY # # Vanco IV, Zosyn 24H INTERVAL SUMMARY * No fever today w/Tmax 99.0, resting comfortably, alert, * T-max yesterday 103. * MICROBIOLOGY: Blood culture growing Staphylococcus aureus. Preliminary urine culture negative. * DIAGNOSTICS: * Ultrasound of the abdomen was unremarkable. * CT of the abdomen and pelvis revealed trace pelvic free fluid. * MRI of right lower extremity revealed no acute abnormality. * Testicular ultrasound revealed left varicocele but no evidence of testicular torsion or epididymal orchitis. PHYSICAL EXAMINATION: GENERAL: A/A/O, VSS HEENT: Unremarkable NECK: Trach-> midline CHEST: Equal chest rise bilaterally, without dyspnea on observation HEART: Pulse RRR ABDOMEN: Soft EXTREMITIES: Warm, SKIN: Warm, dry ID ASSESSMENT: 27 yo M admitted with: 1. Sepsis with fevers and leukocytosis. 2. Staphylococcus aureus bacteremia, possibly methicillin-resistant Staphylococcus aureus, source unknown. 3. Right lower quadrant abdominal pain. So far all imaging studies have been negative so surgery on case. 4. Transaminitis with unremarkable ultrasound of the abdomen. INVASIVES: *PICC- ABX ALLERGIES: NKDA CURRENT ABX: # Vanco IV, Zosyn ID RECOMMENDATIONS: 1. Continue current ABX 2. 2D echo to rule out vegetations. 3. FUTURE: We will consider doing a WBC labeled nuclear scan and repeat blood cultures. . Problems: Consultation Date/Type/Reason Admit Date/Time March 12, 2017 at 03:43 Initial Consult Date Exam/Review of Systems Vital Signs Vitals Vital Signs Date Time Temp Pulse Resp B/P Pulse Ox O2 Delivery O2 Flow Rate FiO2 03/15/17 07:00 99.0 97 18 141/79 99 03/14/17 00:30 Room Air Intake and Output 03/14/17 03/14/17 03/15/17 15:00 23:00 07:00 Intake Total 1010 ml 1000 ml 1150 ml Output Total 450 ml Balance 1010 ml 550 ml 1150 ml Results Result Diagram: 03/15/17 0450 03/15/17 0450 Results 24 hrs Laboratory Tests Test 03/15/17 00:55 03/15/17 04:50 Vancomycin Level Trough 8.9 L White Blood Count 9.6 Red Blood Count 4.41 L Hemoglobin 12.5 L Hematocrit 36.7 L Mean Corpuscular Volume 83.2 Mean Corpuscular Hemoglobin 28.3 L Mean Corpuscular Hemoglobin Concent 34.1 Red Cell Distribution Width 12.9 Platelet Count 200 Mean Platelet Volume 10.2 Neutrophils % 75.5 Lymphocytes % 14.2 L Monocytes % 9.3 Eosinophils % 0.0 Basophils % 0.2 Nucleated Red Blood Cells % 0.0 Neutrophils # 7.3 Lymphocytes # 1.4 Monocytes # 0.9 Eosinophils # 0.0 Basophils # 0.0 Nucleated Red Blood Cells # 0.0 Sodium Level 131 L Potassium Level 3.5 Chloride Level 102 Carbon Dioxide Level 21 Anion Gap 12 Blood Urea Nitrogen 11 Creatinine 0.95 Glucose Level 104 Calcium Level 8.0 L Magnesium Level 1.8 Total Bilirubin 0.5 Direct Bilirubin 0.00 # Indirect Bilirubin 0.5 Aspartate Amino Transf (AST/SGOT) 90 H Alanine Aminotransferase (ALT/SGPT) 85 H Alkaline Phosphatase 96 Total Protein 6.7 Albumin 3.1 L Hepatitis B Surface Antigen NEGATIVE Hepatitis C Antibody NEGATIVE Medications Medications Current Medications Hydromorphone HCl (Dilaudid) 0.5 mg Q4H PRN IV PAIN Last administered on 11:39; Admin Dose 0.5 MG; Start 03/12/17 at 05:00 Ondansetron HCl (Zofran Inj) 4 mg Q6H PRN IV NAUSEA AND/OR VOMITING; Start at 05:30 Acetaminophen (Tylenol Tab) 650 mg Q6H PRN PO PAIN LEVEL 1-3 OR FEVER Last administered on 03/14/17 15:58; Admin Dose 650 MG; Start 03/12/17 at 05:30 Docusate Sodium (Colace) 100 mg Q12H PRN PO CONSTIPATION Last administered on 07:56; Admin Dose 100 MG; Start 03/12/17 at 05:30 Bisacodyl (Dulcolax) 5 mg DAILY PRN PO CONSTIPATION; Start 03/12/17 at 05:30 Famotidine (Pepcid) 20 mg Q12 PO Last administered on 03/15/17 07:56; Admin Dose 20 MG; Start 03/12/17 at 09:00 Enoxaparin Sodium 40 mg 40 mg DAILY SC Last administered on 03/15/17 08:06; Admin Dose 40 MG; Start 03/12/17 at 09:00 Potassium Chloride/Sodium Chloride 1,000 ml @ 75 mls/hr [id number] IV Last administered on 03/14/17 15:03; Admin Dose 75 MLS/HR; Start 03/14/17 at 10:30 Vancomycin HCl/ Sodium Chloride (Vancocin/NS) 250 ml @ 83.333 mls/ hr Q8H IVPB Last administered on 03/15/17 10:31; Admin Dose 83.333 MLS/HR; Start at 10:00 Miscellaneous Information (*Rx Drug Level Order Reminder*) VANCO TROUGH AT 0, 900 ON... ONCE ONCE XX ; Start 03/16/17 at 09:00; Stop 03/16/17 at 09:01 EVELIA BERNAL NP March 15, 2017 14:31 Bisacodyl (Dulcolax) 5 mg DAILY PRN PO CONSTIPATION; Start 03/12/17 at 05:30 Famotidine (Pepcid) 20 mg Q12 PO Last administered on 03/15/17 07:56; Admin Dose 20 MG; Start 03/12/17 at 09:00 Enoxaparin Sodium 40 mg 40 mg DAILY SC Last administered on 03/15/17 08:06; Admin Dose 40 MG; Start 03/12/17 at 09:00 Potassium Chloride/Sodium Chloride 1,000 ml @ 75 mls/hr [id number] IV Last administered on 03/14/17 15:03; Admin Dose 75 MLS/HR; Start 03/14/17 at 10:30 Vancomycin HCl/ Sodium Chloride (Vancocin/NS) 250 ml @ 83.333 mls/ hr Q8H IVPB Last administered on 03/15/17 10:31; Admin Dose 83.333 MLS/HR; Start at 10:00 Miscellaneous Information (*Rx Drug Level Order Reminder*) VANCO TROUGH AT 0, 900 ON... ONCE ONCE XX ; Start 03/16/17 at 09:00; Stop 03/16/17 at 09:01 EVELIA BERNAL NP March 15, 2017 14:31
[2017-03-15] MEDS: NS + KCL 20 MEQ 1,000 ML IV SCH ×2 (15:40→22:01)
[2017-03-15 19:15] VITALS: BP 158/83; RESP 18
[2017-03-16] MEDS: HYDROmorphONE 1 MG/ML SYG IV PRN ×6 (01:12→21:06)
[2017-03-16] MEDS: VANCOMYCIN 1.5 GM in SOD CHLORIDE 0.9% 250 ML IVPB SCH ×3 (02:35→17:14)
--- NOTE | 2017-03-16 03:34 | RADRPT ---
PROCEDURE: MR pelvis without contrast CLINICAL INDICATION: Suspected muscular injury while playing soccer on 03/10. Initial negative MRI of the right 5 performed 03/12. Possible of cultures and suspected prostatitis. TECHNIQUE: Multiplanar multi sequence imaging of the pelvis was performed without intravenous cont rast. COMPARISON: CT from 03/12/2017 FINDINGS: There is edema of the right adductor musculature and occluding the adductor longus, brevis, and magn us. There is also significant edema of the right obturator externus muscle. The iliopsoas tendon a ppears intact but there is a small of fluid in the area of the described muscular edema as well as a small elliptical area of fluid measuring 2.5 x 1.5 cm. No muscular or intermuscular edema is seen on the left. The bladder and prostate are grossly unremarkable. There is moderate pelvic free flui d, increased since the CT of 03/12. Minimal fluid is seen in the hip joints bilaterally. There is minimal fluid between the gluteal muscle layers on the right. Mild fluid between muscle groups ante rior and lateral to the hips is seen bilaterally. This area is incompletely included on the study wh ich is somewhat tailored for evaluation of the prostate as requested. No abnormal marrow signal is seen to suggest osteomyelitis. IMPRESSION: Possible tear or strain of the right adductor musculature and right obturator externus. Small fluid collection which could be due to a small intramuscular hematoma or small abscess. Myositis is also possible given the clinical appearance of infection. No definite prostate abscess. Increased pelv ic free fluid. Minimal joint effusions. Mild edema between the muscle groups anterior and lateral to the hips bilaterally. Results were called to the patient's nurse, Jneni, at 03/16/2017 3:32:40 AM RPTAT: [facility] Physician Marcela Date Time Electronically viewed and signed by Physician Marcela on 03/16/2017 03:34 LE/
[2017-03-16 07:00] VITALS: BP 142/83; RESP 20
[2017-03-16] MEDS: FAMOTIDINE 20 MG TAB PO SCH ×2 (08:46→21:01)
[2017-03-16] MEDS: ENOXAPARIN 40 MG/0.4 ML SYG SC SCH (08:50)
--- NOTE | 2017-03-16 13:14 | PN ---
Date/Time of Note Date/Time of Note DATE: 03/16/17 TIME: 13:09 Assessment/Plan VTE Prophylaxis VTE Prophylaxis Intervention: heparin Lines/Catheters IV Catheter Type (from Nrs): Peripheral IV Urinary Cath still in place: No Assessment/Plan Problems: (1) Myositis of right thigh Status: Acute Comment: Patient with abnormal MRI and bacteremia. He is subjectively and objectively improving. ID to guide therapy and will check echo Qualifiers: Myositis type: infective Qualified Code: M60.051 - Infective myositis of right thigh (2) Staphylococcus aureus bacteremia with sepsis Status: Acute Comment: as above Subjective 24 Hr Interval Summary Free Text/Dictation Patient reports that pain is improved vs. 2 days ago Constitutional: no complaints Respiratory: no complaints Cardiovascular: no complaints Gastrointestinal: no complaints Exam/Review of Systems Vital Signs Vitals Vital Signs Date Time Temp Pulse Resp B/P Pulse Ox O2 Delivery O2 Flow Rate FiO2 03/16/17 07:00 98.5 82 20 142/83 97 03/14/17 00:30 Room Air Intake and Output 03/15/17 03/15/17 03/16/17 15:00 23:00 07:00 Intake Total 250 ml 1280 ml 640 ml Balance 250 ml 1280 ml 640 ml Exam Constitutional: alert, oriented Neck: non-tender, supple Respiratory: clear to auscultation, normal air movement Cardiovascular: nl pulses, regular rate and rhythm Gastrointestinal: nl liver, spleen, non-tender, soft Extremities: other (pain on external rotation) Results Result Diagram: 03/15/17 0450 03/15/17 0450 Results 24 hrs Laboratory Tests Test 03/16/17 09:10 Vancomycin Level Trough 12.4 Medications Medications Current Medications Hydromorphone HCl (Dilaudid) 0.5 mg Q4H PRN IV PAIN Last administered on 13:08; Admin Dose 0.5 MG; Start 03/12/17 at 05:00 Ondansetron HCl (Zofran Inj) 4 mg Q6H PRN IV NAUSEA AND/OR VOMITING; Start at 05:30 Acetaminophen (Tylenol Tab) 650 mg Q6H PRN PO PAIN LEVEL 1-3 OR FEVER Last administered on 03/14/17 15:58; Admin Dose 650 MG; Start 03/12/17 at 05:30 Docusate Sodium (Colace) 100 mg Q12H PRN PO CONSTIPATION Last administered on 07:56; Admin Dose 100 MG; Start 03/12/17 at 05:30 Bisacodyl (Dulcolax) 5 mg DAILY PRN PO CONSTIPATION; Start 03/12/17 at 05:30 Famotidine (Pepcid) 20 mg Q12 PO Last administered on 03/16/17 08:46; Admin Dose 20 MG; Start 03/12/17 at 09:00 Enoxaparin Sodium 40 mg 40 mg DAILY SC Last administered on 03/16/17 08:50; Admin Dose 40 MG; Start 03/12/17 at 09:00 Potassium Chloride/Sodium Chloride 1,000 ml @ 75 mls/hr [id number] IV Last administered on 03/15/17 22:01; Admin Dose 75 MLS/HR; Start 03/14/17 at 10:30 Vancomycin HCl/ Sodium Chloride (Vancocin/NS) 250 ml @ 83.333 mls/ hr Q8H IVPB Last administered on 03/16/17 11:09; Admin Dose 83.333 MLS/HR; Start at 10:00 EDMOND MACHADO MD March 16, 2017 13:14
[2017-03-16] MEDS: NS + KCL 20 MEQ 1,000 ML IV SCH ×2 (15:50→22:37)
--- NOTE | 2017-03-16 16:31 | RADRPT ---
PROCEDURE: Nuclear medicine whole-body Indium-111 radiolabeled white blood cell scan. CLINICAL INDICATION: Abdominal pain. History of right groin muscle injury due to playing soccer. There is a concern regarding abscess. TECHNIQUE: Following intravenous injection of 0.374 mCi Indium-111 radiolabeled white blood cells via a left antecubital fossa vein, static whole-body images were obtained in the anterior and child welfare social worker ior projections. COMPARISON: CT scan of the abdomen and pelvis dated 03/12/2017. MRI of the pelvis dated 7. FINDINGS: Mild increased uptake is visualized in the right inguinal region which corresponds to the region of high signal in the right adductor musculature seen on prior MRI. There is otherwise normal uptake t hroughout. Normal uptake is present in the liver, spleen, and spine. There is no evidence of abscess. IMPRESSION: 1. Mild increased uptake in the right inguinal region at the site of high signal in the right adduc tor musculature seen on prior MRI. The findings may be due to a small abscess at this site. Clinic al correlation is advised. 2. Otherwise normal whole-body Indium-111 radiolabeled white blood cell scan. RPTAT: QQ .Frankie Metzger MD, MD Date Time Electronically viewed and signed by .Frankie Metzger MD, on 03/16/2017 16:30 .R/
--- NOTE | 2017-03-16 16:54 | CONS ---
Date/Time of Note Date/Time of Note DATE: 03/16/17 TIME: 16:26 Assessment/Plan Assessment/Plan Chief Complaint/Hosp Course ID PROGRESS NOTE ABX DAY START 03/13 => # Total Days == Vanco IV s/p Zosyn/Levaquin * 03/15/17 0450 03/15/17 0450 24H INTERVAL SUMMARY * Much improved in terms of pain -- Afebrile -> has defervesced nicely on current ABX since Tmax >103.+ on Wednesday 03/14 * Patient seen today in the presence of surgery consult -> both Dr. Hedrick and ID team recommend conservative treatment with IV ABX. No definite abscess and risks of needle aspiration likely > benefit. We have the pathogen from the (+) Blood culture. * MRI PELVIS resulted (+)Myositis w/small hematoma vs fluid vs ?cannot r/o abscess? * MICROBIOLOGY: Blood culture growing Staphylococcus aureus. Preliminary urine culture negative. * DIAGNOSTICS: * 03/15/17 MRI PELVIS: IMPRESSION: Possible tear or strain of the right adductor musculature and right obturator externus. Small fluid collection which could be due to a small intramuscular hematoma or small abscess. Myositis is also possible given the clinical appearance of infection. No definite prostate abscess. Increased pelvic free fluid. Minimal joint effusions. Mild edema between the muscle groups anterior and lateral to the hips bilaterally. * Ultrasound of the abdomen was unremarkable. * CT of the abdomen and pelvis revealed trace pelvic free fluid. * MRI of right lower extremity revealed no acute abnormality. * Testicular ultrasound revealed left varicocele but no evidence of testicular torsion or epididymal orchitis. PHYSICAL EXAMINATION: GENERAL: A/A/O, VSS HEENT: Unremarkable NECK: Trach-> midline CHEST: Equal chest rise bilaterally, without dyspnea on observation HEART: Pulse RRR ABDOMEN: RLQ pain EXTREMITIES: Warm, moves all ext SKIN: Warm, dry ID ASSESSMENT: 27 yo M admitted with: 1. Sepsis/Septicemia=>(+ fevers, leukocytosis, transaminitis, Staph aureus ( LETY) bacteremia 2/2 acute infectious myositis * 2D ECHO: No evidence of vegetation reported. 3. Right lower quadrant abdominal pain => INFECTIOUS MYOSITIS * => Sequela of muscle sprain/tear injury he suffered while playing soccer. * 5/20/17 MRI PELVIS: Possible tear or strain of the right adductor musculature and right obturator externus. Small fluid collection which could be due to a small intramuscular hematoma or small abscess. Myositis is also possible given the clinical appearance of infection. No definite prostate abscess. Increased pelvic free fluid. Minimal joint effusions. Mild edema between the muscle groups anterior and lateral to the hips bilaterally. 4. Transaminitis with unremarkable ultrasound of the abdomen = due to sepsis. INVASIVES: *PIV ABX ALLERGIES: NKDA CURRENT ABX: STARTED 03/13/17 => # Total Days == Vanco IV s/p Zosyn/Levaquin ID RECOMMENDATIONS: 1. Continue current ABX-> anticipate DC home w/HH ABX Ceftriaxone 2GM IV daily until last day APRIL 09, 2017 * NOTE: Ceftriaxone is NOT a Vesicant; hence does not require PICC line placement. * He requires a minimum IV ABX course for 28 days due to presence of bacteremia (see reference below). * Seen by surgery today who concurs, no indication for needle aspiration. * When clinically improved & cleared by primary => Anticipate taper ABX to Ceftriaxone 2 GM IVPB daily via HH to complete 28 day course. * NOTE: Cephalosporin is considered one of the ABX of choice with LETY myositis. * Recommended disability off work until ABX completed - he works in maintenance , patient instructed to limit activities. Avoid moderate exercise, avoid aggressive physical activities, no sports, no heavy lifting. REFERENCE Per [facility] Guide to ABX Tx=> Recommendation for tx Myositis includes: * DURATION OF ABX COURSE: Depends on adequate drainage; usually 14-28 days. IF bacteremia Staph Aureus, 28 day MINIMUM course. * PATHOGENS: Staph Aureus including MRSA account for ~70% myositis cases. GNB infrequent. Mixed infections w/presence of anaerobes common. Streptococci including S. pneumoniae. * SURGICAL INTERVENTIONS: * A) Open or CT guided aspirated drainage of any abscess; * B) Complicated cases may require fasciotomies and debridement; * C) Some cases may resolve without treatment. ```````````````````````````````````````````````````````````````````````````````` ```````````````````````````````` . Problems: Consultation Date/Type/Reason Admit Date/Time March 12, 2017 at 03:43 Exam/Review of Systems Vital Signs Vitals Vital Signs Date Time Temp Pulse Resp B/P Pulse Ox O2 Delivery O2 Flow Rate FiO2 03/16/17 07:00 98.5 82 20 142/83 97 03/14/17 00:30 Room Air Intake and Output 03/15/17 03/15/17 03/16/17 15:00 23:00 07:00 Intake Total 250 ml 1280 ml 640 ml Balance 250 ml 1280 ml 640 ml Results Result Diagram: 03/15/17 0450 03/15/17 0450 Results 24 hrs Laboratory Tests Test 03/16/17 09:10 Vancomycin Level Trough 12.4 Medications Medications Current Medications Hydromorphone HCl (Dilaudid) 0.5 mg Q4H PRN IV PAIN Last administered on 13:08; Admin Dose 0.5 MG; Start 03/12/17 at 05:00 Ondansetron HCl (Zofran Inj) 4 mg Q6H PRN IV NAUSEA AND/OR VOMITING; Start at 05:30 Acetaminophen (Tylenol Tab) 650 mg Q6H PRN PO PAIN LEVEL 1-3 OR FEVER Last administered on 03/14/17 15:58; Admin Dose 650 MG; Start 03/12/17 at 05:30 Docusate Sodium (Colace) 100 mg Q12H PRN PO CONSTIPATION Last administered on 07:56; Admin Dose 100 MG; Start 03/12/17 at 05:30 Bisacodyl (Dulcolax) 5 mg DAILY PRN PO CONSTIPATION; Start 03/12/17 at 05:30 Famotidine (Pepcid) 20 mg Q12 PO Last administered on 03/16/17 08:46; Admin Dose 20 MG; Start 03/12/17 at 09:00 Enoxaparin Sodium 40 mg 40 mg DAILY SC Last administered on 03/16/17 08:50; Admin Dose 40 MG; Start 03/12/17 at 09:00 Potassium Chloride/Sodium Chloride 1,000 ml @ 75 mls/hr [id number] IV Last administered on 03/15/17 22:01; Admin Dose 75 MLS/HR; Start 03/14/17 at 10:30 Vancomycin HCl/ Sodium Chloride (Vancocin/NS) 250 ml @ 83.333 mls/ hr Q8H IVPB Last administered on 03/16/17 11:09; Admin Dose 83.333 MLS/HR; Start at 10:00 EVELIA BERNAL NP March 16, 2017 16:44
[2017-03-16] MEDS ORDERED: CEFTRIAXONE 2 GM/50 ML (PMX) 50 ML IVPB SCH (17:30)
[2017-03-16 20:00] VITALS: BP 156/88; PULSE 97; RESP 19
[2017-03-17] MEDS: HYDROmorphONE 1 MG/ML SYG IV PRN ×4 (00:55→14:57)
--- NOTE | 2017-03-17 02:12 | PN ---
Date/Time of Note Date/Time of Note DATE: 03/15/17 TIME: 12:00 Assessment/Plan Lines/Catheters IV Catheter Type (from [facility]): Peripheral IV Dup[place] in Place (from [facility]): No Assessment/Plan Chief Complaint/Hosp Course Coverage for Dr. Beckman: 1. Right medial upper thigh pain/tenderness ? muscular injury vs pinched nerve vs other -imaging pending 2. Fever, leukocytosis, and bacteremia. ? source -abx -supportive -imaging pending 3. Anemia, stable -monitor 4. Hyponatremia -correct with fluid management 5. Hypoalbuminemia -nutritional optimization 6. Transaminitis 2nd acute process -monitor Thank you, Late entry 03/15 Problems: Subjective 24 Hr Interval Summary Pain right upper thigh. Fever curve improving. No cp/sob. No cough. No sz/ rash/bloating. Bowel function. No dysuria. Pain improving but still persists. Leukocytosis improving. Images pending. Exam/Review of Systems Vital Signs Vitals Vital Signs Date Time Temp Pulse Resp B/P Pulse Ox O2 Delivery O2 Flow Rate FiO2 03/16/17 20:00 98.5 97 19 156/88 96 03/14/17 00:30 Room Air Intake and Output 03/16/17 03/16/17 03/17/17 15:00 23:00 07:00 Intake Total 250 ml 1705 ml Balance 250 ml 1705 ml Exam Constitutional: alert, oriented, No distress Psych: nl mood/affect, No anxiety Head: atraumatic, normocephalic Eyes: EOMI, PERRL, nl conjunctiva, No icteric ENMT: mucosa pink and moist, nl external ears & nose, nl lips & teeth Neck: non-tender, supple, No jvd Respiratory: normal air movement, No congested cough, No crackles/rales Cardiovascular: regular rate and rhythm, No edema Gastrointestinal: non-tender, soft, No distended, No rebound or guarding Genitourinary - Male: nl penis, nl scrotum, other (No inguinal palpable hernias ) Musculoskeletal: No joint tenderness, No nl extremities to inspection (tender right upper midial thigh) Extremities: normal pulses, No calf tenderness, No cyanosis Neurological: nl mental status, nl speech, nl strength Skin: nl turgor, No diaphoresis, No rash or lesions Lymph: nl lymph nodes Results Result Diagram: 03/15/17 0450 03/15/17 0450 CHERRY BRADLEY MD March 17, 2017 02:10
--- NOTE | 2017-03-17 02:38 | PN ---
Date/Time of Note Date/Time of Note DATE: 03/16/17 TIME: 12:13 Assessment/Plan Lines/Catheters IV Catheter Type (from [facility]): Peripheral IV Dupont in Place (from [facility]): No Assessment/Plan Chief Complaint/Hosp Course Coverage for Dr. Beckman: 1. Right medial upper thigh pain/tenderness 2nd muscular injury with resultant hematoma ? infected but small volume. Improving -ice pack -abx -ibuprofen -will d/w radiology re possible aspiration however area very small 2. Fever, leukocytosis, and bacteremia 2nd above. Improving -as above 3. Anemia, stable -monitor 4. Hyponatremia -correct with fluid management 5. Hypoalbuminemia -nutritional optimization 6. Transaminitis 2nd acute process -monitor Thank you, Late entry 03/16 Problems: Subjective 24 Hr Interval Summary MRI pelvis noted with ? myositis and 2.5cm fluid collection. WBC scan positive same spot. Pain right upper thigh improving. Fever curve improving. No cp/ sob. No cough. No sz/rash/bloating. Bowel function. No dysuria. Leukocytosis improving. Exam/Review of Systems Vital Signs Vitals Vital Signs Date Time Temp Pulse Resp B/P Pulse Ox O2 Delivery O2 Flow Rate FiO2 03/16/17 20:00 98.5 97 19 156/88 96 03/14/17 00:30 Room Air Intake and Output 03/16/17 03/16/17 03/17/17 15:00 23:00 07:00 Intake Total 250 ml 1705 ml Balance 250 ml 1705 ml Exam Free Text/Dictation Constitutional: alert, oriented, No distress Psych: nl mood/affect, No anxiety Head: atraumatic, normocephalic Eyes: EOMI, PERRL, nl conjunctiva, No icteric ENMT: mucosa pink and moist, nl external ears & nose, nl lips & teeth Neck: non-tender, supple, No jvd Respiratory: normal air movement, No congested cough, No crackles/rales Cardiovascular: regular rate and rhythm, No edema Gastrointestinal: non-tender, soft, No distended, No rebound or guarding Genitourinary - Male: nl penis, nl scrotum, other (No inguinal palpable hernias ) Musculoskeletal: No joint tenderness, No nl extremities to inspection (tender right upper midial thigh) Extremities: normal pulses, No calf tenderness, No cyanosis Neurological: nl mental status, nl speech, nl strength Skin: nl turgor, No diaphoresis, No rash or lesions Lymph: nl lymph nodes Results Free Text/Dictation MRI pelvis: There is edema of the right adductor musculature and occluding the adductor longus, brevis, and betsy. There is also significant edema of the right obturator externus muscle. The iliopsoas tendon appears intact but there is a small of fluid in the area of the described muscular edema as well as a small elliptical area of fluid measuring 2.5 x 1.5 cm. No muscular or intermuscular edema is seen on the left. The bladder and prostate are grossly unremarkable. There is moderate pelvic free fluid, increased since the CT of 03/12. Minimal fluid is seen in the hip joints bilaterally. There is minimal fluid between the gluteal muscle layers on the right. Mild fluid between muscle groups anterior and lateral to the hips is seen bilaterally. This area is incompletely included on the study which is somewhat tailored for evaluation of the prostate as requested. No abnormal marrow signal is seen to suggest osteomyelitis. IMPRESSION: Possible tear or strain of the right adductor musculature and right obturator externus. Small fluid collection which could be due to a small intramuscular hematoma or small abscess. Myositis is also possible given the clinical appearance of infection. No definite prostate abscess. Increased pelvic free fluid. Minimal joint effusions. Mild edema between the muscle groups anterior and lateral to the hips bilaterally. WBC scan: 1. Mild increased uptake in the right inguinal region at the site of high signal in the right adductor musculature seen on prior MRI. The findings may be due to a small abscess at this site. Clinical correlation is advised. 2. Otherwise normal whole-body Indium-111 radiolabeled white blood cell scan. Result Diagram: 03/15/17 0450 03/15/17 0450 CHERRY BRADLEY MD March 17, 2017 02:23
[2017-03-17 04:58] LABS: ADD SCAN DIFF NO
[2017-03-17 05:11] LABS: ABNORMAL IP MESSAGE 1; BASOPHILS % 0.2 % (0.0-2.0); EOSINOPHILS % 0.2 % (0.0-7.0); HEMATOCRIT 39.8 % (42.0-52.0); HEMOGLOBIN 13.3 g/dl (14.0-18.0); LYMPHOCYTES % 16.7 % (15.0-51.0); MEAN CORPUSCULAR HEMOGLOBIN 27.8 pg (29.0-33.0); MEAN CORPUSCULAR HGB CONC 33.4 g/dl (32.0-37.0); MEAN CORPUSCULAR VOLUME 83.3 fl (82.0-101.0); MEAN PLATELET VOLUME 9.9 fl (7.4-10.4); MONOCYTE # 1.6 10^3/ul (0.3-0.9); MONOCYTES % 13.2 % (0.0-11.0); NEUTROPHIL # 8.2 10^3/ul (1.6-7.5); NEUTROPHILS % 67.1 % (39.0-77.0); PLATELET COUNT 223 10^3/UL (140-415); RED BLOOD COUNT 4.78 10^6/ul (4.70-6.10); RED CELL DISTRIBUTION WIDTH 13.4 % (11.5-14.5); WHITE BLOOD COUNT 12.2 10^3/ul (4.8-10.8)
[2017-03-17 05:24] LABS: CALCIUM 8.3 mg/dl (8.4-10.2); CREATININE 0.79 mg/dl (0.61-1.24)
[2017-03-17 05:28] LABS: CREATINE KINASE 115 IU/L (23-200)
[2017-03-17 05:36] LABS: CK-MB < 0.22 ng/ml (0.0-2.4); TROPONIN-I < 0.012 ng/ml (0.00-0.12)
[2017-03-17 07:36] VITALS: BP 137/78; RESP 19
[2017-03-17] MEDS: FAMOTIDINE 20 MG TAB PO SCH (08:52)
[2017-03-17] MEDS: ENOXAPARIN 40 MG/0.4 ML SYG SC SCH (09:00)
[2017-03-17] MEDS ORDERED: CEFTRIAXONE 2 GM/50 ML (PMX) 50 ML IVPB SCH (09:00)
--- NOTE | 2017-03-17 09:15 | PN ---
DATE: The patient has been afebrile for the last 24 hours. He is symptomatically improved. He does have a low-grade leukocytosis of 12,200. His sed rate today is elevated to 43. Physical examination is unremarkable. IMPRESSION: Right adductor muscles tear, with small fluid collection. PLAN: The patient will be treated with intravenous antibiotics and full resolution is expected. The re is no need for aspiration or drainage at this time. As there are no further surgical recommendat ions, will sign off and see again p.r.n. your request. Dictated By: DARREN BANDA/VARGAS Conf#: [id number] DID#: [id number]
[2017-03-17] MEDS ORDERED: LIDOCAINE 1% (MPF) 5 ML VIAL SC ONE (11:30)
--- NOTE | 2017-03-17 11:59 | CONS ---
Date/Time of Note Date/Time of Note DATE: 03/17/17 TIME: 11:55 Assessment/Plan Assessment/Plan Chief Complaint/Hosp Course SUBJECTIVE: No events overnight. Alert, feels good, no fevers MICROBIOLOGY: Blood culture growing LETY ANTIMICROBIALS: Rocephin PHYSICAL EXAMINATION: GENERAL: This is a well-nourished, well-developed 27-year-old man who is alert , in no distress. HEENT: Head atraumatic, normocephalic. Sclerae anicteric. Buccal mucosa pink. NECK: Supple. CHEST: Rise symmetrical. Breath sounds clear. HEART: S1, S2. ABDOMEN: Soft, bowel tones present. EXTREMITIES: Without cyanosis. ASSESSMENT: 1. Sepsis with fevers and leukocytosis present on admission. 2. LETY bacteremia 2 to #3 3. Right adductor muscles tear, with small fluid collection==> no need for surgical intervention per man Beckman 4. Transaminitis with unremarkable ultrasound of the abdomen. PLAN: Stable, repeat bld cx nagetive, will change abx to oral Cipro and treat him for 2 weeks, will add probiotics. MAN Lugo Problems: Consultation Date/Type/Reason Admit Date/Time March 12, 2017 at 03:43 Initial Consult Date Type of Consultation: ID Exam/Review of Systems Vital Signs Vitals Vital Signs Date Time Temp Pulse Resp B/P Pulse Ox O2 Delivery O2 Flow Rate FiO2 03/17/17 07:36 98.0 78 19 137/78 98 03/14/17 00:30 Room Air Intake and Output 03/16/17 03/16/17 03/17/17 15:00 23:00 07:00 Intake Total 250 ml 1940 ml 1050 ml Output Total 1300 ml Balance 250 ml 1940 ml -250 ml Results Result Diagram: 03/17/17 0428 03/17/17 0428 Results 24 hrs Laboratory Tests Test 03/17/17 04:28 White Blood Count 12.2 #H Red Blood Count 4.78 Hemoglobin 13.3 L Hematocrit 39.8 L Mean Corpuscular Volume 83.3 Mean Corpuscular Hemoglobin 27.8 L Mean Corpuscular Hemoglobin Concent 33.4 Red Cell Distribution Width 13.4 Platelet Count 223 Mean Platelet Volume 9.9 Neutrophils % 67.1 Lymphocytes % 16.7 Monocytes % 13.2 H Eosinophils % 0.2 Basophils % 0.2 Nucleated Red Blood Cells % 0.0 Neutrophils # 8.2 H Lymphocytes # 2.0 Monocytes # 1.6 H Eosinophils # 0.0 Basophils # 0.0 Nucleated Red Blood Cells # 0.0 Erythrocyte Sedimentation Rate 43 H Sodium Level 133 L Potassium Level 4.0 Chloride Level 103 Carbon Dioxide Level 25 Anion Gap 9 Blood Urea Nitrogen 11 Creatinine 0.79 Glucose Level 104 Calcium Level 8.3 L Creatine Kinase 115 Creatine Kinase Index 0.2 Creatinine Kinase MB (Mass) < 0.22 Troponin I < 0.012 Medications Medications Current Medications Hydromorphone HCl (Dilaudid) 0.5 mg Q4H PRN IV PAIN Last administered on 08:53; Admin Dose 0.5 MG; Start 03/12/17 at 05:00 Ondansetron HCl (Zofran Inj) 4 mg Q6H PRN IV NAUSEA AND/OR VOMITING; Start at 05:30 Acetaminophen (Tylenol Tab) 650 mg Q6H PRN PO PAIN LEVEL 1-3 OR FEVER Last administered on 03/14/17 15:58; Admin Dose 650 MG; Start 03/12/17 at 05:30 Docusate Sodium (Colace) 100 mg Q12H PRN PO CONSTIPATION Last administered on 07:56; Admin Dose 100 MG; Start 03/12/17 at 05:30 Bisacodyl (Dulcolax) 5 mg DAILY PRN PO CONSTIPATION; Start 03/12/17 at 05:30 Famotidine (Pepcid) 20 mg Q12 PO Last administered on 03/17/17 08:52; Admin Dose 20 MG; Start 03/12/17 at 09:00 Enoxaparin Sodium 40 mg 40 mg DAILY SC Last administered on 03/17/17 09:00; Admin Dose 40 MG; Start 03/12/17 at 09:00 Potassium Chloride/Sodium Chloride 1,000 ml @ 75 mls/hr [id number] IV Last administered on 03/16/17 22:37; Admin Dose 75 MLS/HR; Start 03/14/17 at 10:30 Ceftriaxone Sodium (Rocephin) 50 ml @ 100 mls/hr Q24H IVPB Last administered on 03/17/17 08:52; Admin Dose 100 MLS/HR; Start 03/17/17 at 09:00 AVA MACHADO NP March 17, 2017 11:59
[2017-03-17] MEDS ORDERED: CIPR500T4 PO (12:02)
--- NOTE | 2017-03-17 12:03 | PDOCDIS ---
Discharge Instructions CONDITION Patient Condition: Good HOME CARE INSTRUCTIONS: Diet Instructions: Regular ACTIVITY: Activity Restrictions: No Restrictions FOLLOW UP/APPOINTMENTS Appointments F/U WITH YOUR PCP IN 1-2 WEEKS SAI SAMSON March 17, 2017 12:03
[2017-03-17] MEDS ORDERED: CIPROFLOXACIN 500 MG TAB PO SCH (18:00)
--- NOTE | 2017-03-18 04:20 | DS ---
DATE OF ADMISSION: 03/12/2017 DATE OF DISCHARGE: 03/17/2017 DISCHARGE DIAGNOSES: 1. Myositis right thigh and discharged with p.o. antibiotics, now improved. 2. Staphylococcus aureus bacteremia, sepsis discharged with p.o. antibiotics per ID. HOSPITAL COURSE: The patient is a 27-year-old male. The patient has no significant medical history . The patient presents with pain in the right upper thigh and right abdominal quadrant. The patien t reportedly pulled muscle playing soccer. The patient had a lower extremity MRI that showed no acu te fracture, osteonecrosis stress response, no acute muscle or tendon abnormality. The patient had an MRI of the pelvis showed possible tear or strain on the right adductor musculature, right obturat or externus. A small fluid collection was also noted and myositis is also possible given clinical a ppearance. The patient was seen by surgery as well as ID. Note, the patient did have a fever and l eukocytosis and had 2 blood cultures that showed Staphylococcus aureus. The patient was put on IV a ntibiotics. Of note, the patient did have testicular ultrasound that showed no evidence of torsion. Abdominal ultrasound was unremarkable and WBC scan showed increased uptake in the right inguinal r egion in the site of the right adductor musculature seen on prior MRI. Findings may be due to small abscess, otherwise normal scan. The patient also had an abdominal pelvis CT that showed trace pelv ic free fluid, otherwise no acute abnormality. Hence, the patient was diagnosed with infectious richard sitis. The patient did receive IV antibiotics so that patient can go home with p.o. antibiotics per ID. The patient was felt to be stable for discharge. On day of discharge, the patient's vitals, l abs, physical exam were stable. He had no acute complaints. Questions answered. CONDITION ON DISCHARGE: Stable. DISPOSITION: To home. MEDICATIONS: The patient was given a prescription for Cipro 500 mg p.o. b.i.d. for 14 days. The kaur romeo has no reported home medications. FOLLOWUP: The patient is to follow up with his PCP in 1 to 2 weeks. I spent coordinating discharge of patient. Dictated By: SAI AGUILAR/VARGAS Conf#: [id number] DID#: [id number]
== END 2017-03-17 16:25 | disposition home or self-care (01) | DRG 872 ==
LOC: FTE 21:31 → MS1 03-12 03:43
PROVIDERS: ADMIT Family Medicine; ATTEND Family Medicine
DX: A41.01 Sepsis due to Methicillin susceptible Staphylococcus aureus (principal); M60.051 Infective myositis, right thigh; E87.1 Hypo-osmolality and hyponatremia; E88.09 Other disorders of plasma-protein metabolism, not elsewhere classified; R10.31 Right lower quadrant pain; N50.82 Scrotal pain
CPT/HCPCS: 72195; 73718; 74176; 76705; 76870; 78806; 80048; 80053; 80076; 80202; 81003; 82550; 82553; 83605; 83690; 83735; 84484; 85025; 85651; 86140; 86803; 87040; 87081; 87086; 87340; 87591; 93306; A9570; J1170; J1650; J1885; J1956; J2060; J2270; J2405; J2543; J3370; J3480; J7030; J7050